=== PATIENT | female | born 1960 | race Caucasian/White ===

== ENCOUNTER 2017-10-26 15:12 | Outpatient (CLI) | payer OTHER ==
[2017-10-26 16:06] LABS: ALT (SGPT) 45 U/L (8-55); AST (SGOT) 69 U/L (5-34); Albumin 4.6 g/dL (3.5-5.0); Alkaline Phosphatase 135 U/L (40-150); Anion Gap 14 mmol/L (10-20); BUN (Urea Nitrogen) 13 mg/dL (9.8-20.1); Bilirubin, Total 0.4 mg/dL (0.2-1.2); Calc. Creatinine Clearance 0 mL/min (70-130); Calcium 10.6 mg/dL (7.8-10.44); Carbon Dioxide 28 mmol/L (22-29); Chloride 101 mmol/L (98-107); Estimated GFR-MDRD 63; Globulin 3.1 g/dL (2.4-3.5); Glucose 89 mg/dL (70-105); Potassium 4.4 mmol/L (3.5-5.1); Protein, Total 7.7 g/dL (6.0-8.3); Sodium 139 mmol/L (136-145); Uric Acid 1.2 mg/dL (2.6-6.0)
[2017-10-26 16:26] LABS: Band 1 % (5-11); Eosinophils 5 % (0-10); Hemoglobin 15.4 g/dL (12.0-16.0); Lymphocytes 41 % (21-51); MDiff Complete? YES; Mean Corpuscular Hemoglobin 32.5 pg (27.0-31.0); Mean Corpuscular Volume 95.5 fl (81.0-99.0); Mean Platelet Volume 8.5 fL (7.4-10.4); Monocytes 7 % (0-10); Neutrophil 45 % (42-75); PLT Morphology Comment Appears Adequate; Platelet Count 281 thou/uL (130-400); RBC Distribution Width 12.5 % (11.5-14.5); RBC Morphology Normal; Red Blood Cell (RBC) Count 4.76 mill/uL (4.20-5.40); White Blood Cell (WBC) Count 10.1 thou/uL (4.8-10.8)
--- NOTE | 2017-10-26 16:41 | RAD ---
LEFT HIP 2 VIEWS: Date: 10/26/17 HISTORY: Left hip pain x2 weeks. FINDINGS: There are arthritic changes of the hip without significant joint space narrowing, but some acetabular spur formation. No signs of fracture or other findings. IMPRESSION: Fairly minimal arthritic changes of the hip. POS: [facility]
[2017-10-26 16:45] LABS: Free T4 (Free Thyroxine) 1.33 ng/dL (0.70-1.48); Thyroid Stimulating Hormone 5.2155 uIU/mL (0.35-4.94)
== END 2017-10-26 15:13 | disposition home or self-care (01) ==
LOC: SCSRAD 15:12
PROVIDERS: ATTEND Family Medicine
DX: M16.12 Unilateral primary osteoarthritis, left hip (principal); I10 Essential (primary) hypertension
CPT/HCPCS: 36415; 80053; 84439; 84443; 84550; 85007; 85027

== ENCOUNTER 2017-11-20 08:54 | Outpatient (CLI) | payer OTHER ==
--- NOTE | 2017-11-20 12:13 | MRI ---
MRI LEFT HIP WITHOUT CONTRAST: INDICATIONS: Persistent left hip pain. COMPARISON: Left hip radiograph dated 10/26/2017. FINDINGS: There are changes of osteonecrosis involving the superior femoral head with reactive edema involving the femoral head and neck region. No definite subcortical collapse is demonstrated. There is mild o steoarthritic change of the left hip. No distinct fracture is noted. There is mild left joint effus ion present. There is mild tendinosis and fluid distention of the iliopsoas tendon sheath at the lesser trochanter . There is some mild tendinosis of the left gluteus minimus and medius tendons. There is a mild amount of osteonecrosis involving the right femoral head without evidence of subchond ral collapse. IMPRESSION: 1. Osteonecrosis of the left femoral head with reactive edema involving the left femoral head and ne ck region. There is a mild left joint effusion. No definite subchondral collapse is evident. 2. Mild left iliopsoas tenosynovitis. 3. Mild left gluteus minimus and medius tendinosis. 4. Mild osteonecrosis of the right femoral head without evidence of collapse. 5. Colonic diverticulosis. POS: [facility]
== END 2017-11-20 08:55 | disposition home or self-care (01) ==
LOC: SCSMRI 08:54
PROVIDERS: ATTEND Orthopaedic Surgery
DX: M25.552 Pain in left hip (principal); M25.452 Effusion, left hip; M67.854 Other specified disorders of tendon, left hip; M87.9 Osteonecrosis, unspecified; K57.30 Diverticulosis of large intestine without perforation or abscess without bleeding

== ENCOUNTER 2018-01-21 12:06 | Outpatient (CLI) | payer OTHER ==
[2018-01-21 13:54] LABS: Hemoglobin 13.6 g/dL (12.0-16.0); Mean Corpuscular HGB CONC 33.7 g/dL (32.0-36.0); Mean Corpuscular Hemoglobin 32.4 pg (27.0-31.0); Platelet Count 234 thou/uL (130-400); RBC Distribution Width 12.3 % (11.5-14.5); Red Blood Cell (RBC) Count 4.19 mill/uL (4.20-5.40); White Blood Cell (WBC) Count 10.8 thou/uL (4.8-10.8)
[2018-01-21 13:55] LABS: Bilirubin Negative (Negative); Blood, Urine Negative (Negative); Clarity CLOUDY (Clear); Glucose, Urine (Dipstick) Negative (Negative); Leukocyte Negative (Negative); Nitrite Negative (Negative); Protein, Urine (Dipstick) Negative (Neg-Trace); Specific Gravity, Urine 1.005 (1.002-1.036); Urobilinogen 0.2 mg/dL (0.2-1.0); pH, Urine 5.5 (5.0-9.0)
[2018-01-21 13:57] LABS: Bacteria/HPF Rare-Few HPF (None Seen); Hyaline Casts/LPF 0-3 HYALINE CAST LPF (0-3 Hyaline); Pathc Cast-AUWi Flag 0.29 (0-2.49); Squamous Epithelial 0-3 HPF (0-3); WBC/HPF 0-3 HPF (0-3)
[2018-01-21 13:58] LABS: Yeast-AUWi Flag 46.8 (0-25.0)
[2018-01-21 14:03] LABS: Prothrombin Time 13.3 SEC (12.0-14.7)
[2018-01-21 14:13] LABS: Anion Gap 13 mmol/L (10-20); BUN (Urea Nitrogen) 17 mg/dL (9.8-20.1); Calc. Creatinine Clearance 0 mL/min (70-130); Calcium 9.7 mg/dL (7.8-10.44); Carbon Dioxide 25 mmol/L (22-29); Chloride 102 mmol/L (98-107); Estimated GFR-MDRD 46; Glucose 114 mg/dL (70-105); Potassium 4.2 mmol/L (3.5-5.1); Sodium 136 mmol/L (136-145)
[2018-01-21 14:17] LABS: RBC/HPF None Seen HPF (0-3); Yeast-All Forms None Seen HPF (None Seen)
--- NOTE | 2018-01-21 17:16 | EKG ---
Test Reason : Blood Pressure : / mmHG Vent. Rate : 085 BPM Atrial Rate : 085 BPM P-R Int : 152 ms QRS Dur : 088 ms QT Int : 374 ms P-R-T Axes : 069 044 056 degrees QTc Int : 445 ms Normal sinus rhythm Cannot exclude Anteroseptal infarct , age undetermined Abnormal ECG Confirmed by BELINDA DAWKINS ([id number]) on 01/21/2018 5:15:33 PM Referred By: BRITNEY Confirmed By:BELINDA DAWKINS
== END 2018-01-21 12:07 | disposition home or self-care (01) ==
LOC: LABBT 12:06
PROVIDERS: ATTEND Orthopaedic Surgery
DX: Z01.818 Encounter for other preprocedural examination (principal); M87.052 Idiopathic aseptic necrosis of left femur
CPT/HCPCS: 80048; 81001; 85027; 85610; 86850; 86900; 86901; 87081; 93005; 93010

== ENCOUNTER 2018-01-21 14:00 | Inpatient (IN) | payer OTHER ==
[2018-01-21 12:22] VITALS: BMI 32.8
[2018-01-26] MEDS ORDERED: CEFAZOLIN/Water 2 GM/20 ML SYRINGE ONE (05:55)
[2018-01-26] MEDS ORDERED: Sodium Chloride 0.9% 100 ML ONE (05:55)
[2018-01-26] MEDS ORDERED: Vancomycin HCl 1.5 GM in Sodium Chloride 0.9% 250 ML 300 ML IVPB SCH ×2 (06:15→18:00)
[2018-01-26] MEDS ORDERED: Midazolam HCl 2 mg/2 ml Vial ONE (06:34)
[2018-01-26] MEDS ORDERED: Fentanyl 100 MCG/2 ML VIAL ONE ×2 (06:34→08:58)
[2018-01-26] MEDS ORDERED: Bupivacaine/Epinephrine 0.25% 30 ML VIAL ONE (06:55)
[2018-01-26] MEDS ORDERED: Bupivacaine HCl 0.5%/Epinephrine 1:200,000/PF 30 ml Vial ONE (06:55)
[2018-01-26] MEDS ORDERED: Lidocaine 1% w/Epinephrine 1:100K 30 ML VIAL ONE (06:58)
[2018-01-26] MEDS ORDERED: Ondansetron HCl/PF 4 MG/2 ML Vial IVP PRN ×3 (07:15→09:33)
[2018-01-26] MEDS ORDERED: Promethazine HCl 25 MG SUPP PR PRN (07:15)
[2018-01-26] MEDS ORDERED: fentaNYL Citrate/PF 1,250 MCG, Bupivacaine 25 ML in Sodium Chloride 0.9% 250 ML 200 ML EPIDURAL SCH (07:15)
[2018-01-26] MEDS ORDERED: Zolpidem Tartrate 5 MG TAB PO PRN ×2 (07:15→09:33)
[2018-01-26] MEDS ORDERED: traMADol HCl 50 MG TAB PO PRN ×3 (07:15→09:33)
[2018-01-26] MEDS ORDERED: HYDROcodone/Acetaminophen 5/325 mg Tablet PO PRN (07:15)
[2018-01-26] MEDS ORDERED: Naloxone HCl 0.4 mg/ml Vial IVP PRN (07:15)
[2018-01-26] MEDS ORDERED: Promethazine HCl 25 MG/ML VIAL IM PRN ×3 (07:15→09:33)
[2018-01-26] MEDS ORDERED: Bupivacaine 0.25% 10 ML VIAL EPIDURAL PRN (07:15)
[2018-01-26] MEDS ORDERED: diphenhydrAMINE 50 MG/ML VIAL IM PRN (07:15)
[2018-01-26] MEDS ORDERED: diphenhydrAMINE 50 MG/ML VIAL IVP PRN (07:15)
[2018-01-26] MEDS ORDERED: Naloxone HCl 0.4 mg/ml Vial IV PRN (07:15)
[2018-01-26] MEDS ORDERED: diphenhydrAMINE 25 MG CAP PO PRN ×2 (07:15→09:33)
[2018-01-26] MEDS ORDERED: Hydrocerin (Eucerin) Cream 120 gm Jar TOP PRN (07:15)
[2018-01-26] MEDS ORDERED: Promethazine HCl 25 MG/ML VIAL SLOW IVP PRN (08:55)
[2018-01-26] MEDS ORDERED: Acetaminophen 325 MG TAB PO PRN (09:33)
[2018-01-26] MEDS ORDERED: HYDROcodone/Acetaminophen 10/325 mg Tablet PO PRN ×2 (09:33)
[2018-01-26] MEDS ORDERED: Fentanyl 100 MCG/2 ML VIAL SLOW IVP PRN ×2 (09:33)
[2018-01-26] MEDS ORDERED: Aspirin 325 MG TAB PO SCH (09:33)
--- NOTE | 2018-01-26 09:46 | OP ---
DATE OF PROCEDURE: 01/26/2018 PREOPERATIVE DIAGNOSIS: Left hip avascular necrosis. POSTOPERATIVE DIAGNOSIS: Left hip avascular necrosis. PROCEDURE PERFORMED: Left total hip arthroplasty. STAFF: Estuardo Burgos M.D. SALES CONSULTANT RESIDENTIAL MANAGER: Oleg Reis PA-C. ANESTHESIA: Burrough. The patient received a general with epidural. ESTIMATED BLOOD LOSS: 200 mL. TOURNIQUET TIME: None. IMPLANTS: A [place]set Accolade TMXZ size 4.5,a Tritanium hemispherical cluster shell 54 mm, Trident 10 degree poly insert 36 mm, and a Biolox delta ceramic head 36 -5. ANTIBIOTICS: Vancomycin 1.5 grams, Ancef 2 grams, TXA 1 gram. COMPLICATIONS: None. HISTORY OF PRESENT ILLNESS: Ms. Rossi is a 57-year-old female presenting with greater than 3 months of left hip pain described as 10. The patient has history of alcoholism. I discussed with the patient preoperatively the risks and benefits of possible core decompression, possible grafting. I discussed with her that definitive care would be a total hip arthroplasty. The patient desired a total hip arthroplasty. She understood the risks and benefits of surgery including pain, scar, bleeding, infection, damage to vital structures, decreased range of motion or strength, need for further surgeries, failure of procedure, loss of life or limb. The patient understood these risks and benefits. The patient understands that she has increased risk of developing tremors given her history of alcohol use. She understands risks and benefits of the surgery and elected to proceed. PROCEDURE IN DETAIL: Time out was performed designating the patient's left hip as the operative site based on site, consents, markings. The patient's left hip was prepped and draped in sterile fashion. She had been placed in lateral position with bony prominences well padded. We placed a lateral incision down through skin, came down to the IT band, split the IT band, took down the gluteus medius and minimus to expose the capsule, T'd and excised the capsule, dislocated the hip, cut the femoral neck, removed the femoral head. We then exposed the acetabulum, removed the labrum and soft tissues from the cuff, reamed sequentially up to a 53, placed a 54 mm cup which was firm and fixed. We then broached. After we placed our final cup and our 10 degree poly insert, had a good overall coverage firmly fixed. We then moved to the femur. We then used our cookie cutter, placed opening reamer and broached to a 4.5, trialed the 4.5, -5, I liked the overall alignment and length, picked our final implants this was a 4.5 with a -5 ceramic head, reduced, may be longer by a few millimeters, but overall I liked the alignment and length of the patient's legs. The patient reduced well, had a good subtotal shuck, overall had good rotation, did not dislocate. We then washed. Final implants, closed with #2 Vicryl in the gluteus medius gluteus minimus, we then closed the IT band with # 2 Vicryl, #2 Quill, 0 Quill, 2-0 Quill, and glue for the skin. The patient will be admitted to [place] for postop protocol. She will be weightbearing as tolerated. The patient was followed by Medicine for possible DTs. EZRA
[2018-01-26] MEDS: Multivitamin W/ Minerals 1 TAB PO SCH (10:57)
[2018-01-26] MEDS: Ferrous Gluconate 324 MG TAB PO SCH ×2 (10:57→19:49)
[2018-01-26] MEDS: Senokot S 8.6-50 MG TAB PO SCH ×2 (10:57→19:50)
[2018-01-26] MEDS: Sodium Chloride 0.9% 1,000 ML IV SCH ×2 (11:06→17:16)
[2018-01-26] MEDS ORDERED: hydrALAZINE 20 MG/ML VIAL SLOW IVP PRN (12:45)
[2018-01-26] MEDS: Nicotine 21 MG PATCH TD SCH (13:12)
[2018-01-26] MEDS ORDERED: PROPOFOL 200 MG/20 ML VIAL ONE (13:26)
[2018-01-26] MEDS ORDERED: Lidocaine 1% PF 5 ML VIAL ONE (13:26)
[2018-01-26] MEDS ORDERED: PHENYLEPHRINE-NS 100 MCG/ML 10 ML SYRINGE ONE (13:26)
[2018-01-26] MEDS ORDERED: ePHEDrine/0.9% NaCl/PF SYRINGE 50 mg/10 ml ONE (13:26)
[2018-01-26] MEDS ORDERED: Ondansetron HCl/PF 4 MG/2 ML Vial ONE (13:26)
[2018-01-26] MEDS: hydrOXYzine Pamoate 25 mg Capsule PO SCH ×2 (14:47→21:49)
[2018-01-26] MEDS: CEFAZOLIN/Water 2 GM/20 ML SYRINGE SLOW IVP SCH ×2 (14:47→21:51)
--- NOTE | 2018-01-26 15:23 | RAD ---
TWO VIEWS LEFT HIP: Comparison: 10-26-17 FINDINGS: Two views of the left hip shows the patient to be status post left hip arthroplasty without perihardw are lucency or fracture. No degenerative change is seen in the right hip which is visualized on the l ower view of the pelvis. IMPRESSION: Status post left hip arthroplasty without evidence of acute osseous abnormality. POS: [facility]
[2018-01-26] MEDS: Ziprasidone 20 MG CAP PO SCH (17:15)
--- NOTE | 2018-01-26 17:58 | PDOC.PN ---
- Subjective Encounter Start Date: 01/26/18 Encounter Start Time: 15:00 Pt seen for management of medical comorbidities, including hypertension. Denies chest pain or shortness of breath. - Objective MAR Reviewed: Yes Vital Signs & Weight: Vital Signs (12 hours) Temp Pulse Pulse Resp BP BP Pulse Ox 01/26/18 17:10 85 94/57 L 01/26/18 15:50 97.2 F L 74 18 97/61 100 01/26/18 12:25 98.1 F 82 16 99/64 100 01/26/18 10:25 97.7 F 01/26/18 09:40 96.9 F L 72 20 105/67 100 Weight Weight 235 lb I&O: 01/25/18 01/26/18 01/27/18 06:59 06:59 06:59 Intake Total 837 Balance 837 Additional Labs: Labs reviewed by me Phys Exam - Physical Examination Obese HEENT: moist MMs Neck: supple Respiratory: clear to auscultation bilateral Cardiovascular: RRR Gastrointestinal: soft s/p L hip surgery Psychiatric: normal affect Dx/Plan (1) Hypertension Code(s): I10 - ESSENTIAL (PRIMARY) HYPERTENSION Status: Chronic Comment: Add PRN IV hydralazine for blood pressure spikes (2) Gout Code(s): M10.9 - GOUT, UNSPECIFIED Status: Chronic Comment: continue allopurinol (3) GERD (gastroesophageal reflux disease) Code(s): K21.9 - GASTRO-ESOPHAGEAL REFLUX DISEASE WITHOUT ESOPHAGITIS Status: Chronic Comment: continue PPI (4) Alcohol abuse, daily use Code(s): F10.10 - ALCOHOL ABUSE, UNCOMPLICATED Status: Chronic Comment: start ASE protocol (5) Tobacco abuse Code(s): Z72.0 - TOBACCO USE Status: Chronic Comment: start nicotine patch - Plan * . Review of Systems - Review of Systems Respiratory: negative: Cough, Shortness of Breath, SOB with Excertion, Pleuritic Pain, Wheezing Cardiovascular: negative: chest pain, palpitations, orthopnea, paroxysmal nocturnal dyspnea, edema, light headedness - Medications/Allergies Allergies/Adverse Reactions: Allergies Allergy/AdvReac Type Severity Reaction Status Date / Time No Known Allergies Allergy Verified 01/21/18 12:23 Medications: Current Medications Acetaminophen (Tylenol) 650 mg PO Q4H PRN PRN Reason: PHELPS/ T > 101F; Mild Pain (1-3) Hydrocodone Bitart/Acetaminophen ([place] 5/325) 1 tab PO Q4H PRN PRN Reason: Mild Pain 0-3 Hydrocodone Bitart/Acetaminophen ([place] 5/325) 2 tab PO Q4H PRN PRN Reason: For Moderate Pain 4-6 Allopurinol (Zyloprim) 300 mg PO DAILY [facility] Aspirin (Aspirin Chewable) 81 mg PO BID [facility] Cefazolin Sodium (Ancef) 2 gm SLOW IVP Q8HR [facility] Stop: 01/26/18 22:01 Last Admin: 01/26/18 14:47 Dose: 2 gm Citalopram Hydrobromide (Celexa) 40 mg PO DAILY [facility] Colestipol HCl (Colestid) 2 gm PO 1000 [facility] Diphenhydramine HCl (Benadryl) 25 mg PO Q3H PRN PRN Reason: Itching Diphenhydramine HCl (Benadryl) 25 mg IM Q3H PRN PRN Reason: Itching Diphenhydramine HCl (Benadryl) 25 mg IVP Q3H PRN PRN Reason: Itching Diphenhydramine HCl (Benadryl) 25 mg PO Q6H PRN PRN Reason: Itching Doxepin HCl (Sinequan) 75 mg PO HS [facility] Emollient Cream (Hydrocerin Cream) 0 gm TOP PRN PRN PRN Reason: Itching Ferrous Gluconate (Fergon) 324 mg PO BID [facility] Last Admin: 01/26/18 10:57 Dose: Not Given Hydralazine HCl (Apresoline) 10 mg SLOW IVP Q6H PRN PRN Reason: SBP Greater Than 170 Hydroxyzine Pamoate (Vistaril) 25 mg PO TID [facility] Last Admin: 01/26/18 14:47 Dose: 25 mg Fentanyl Citrate 1,250 mcg/Bupivacaine HCl 25 ml/ Sodium Chloride 250 mls @ 0 mls/hr EPIDURAL INF [facility] Sodium Chloride (Normal Saline 0.9%) 1,000 mls @ 100 mls/hr IV .Q10H [facility] Last Admin: 01/26/18 17:16 Dose: 1,000 mls Vancomycin HCl 1.5 gm/ Sodium (Chloride) 300 mls @ 200 mls/hr IVPB 1800 [facility] Stop: 01/26/18 19:29 Iron/Minerals/Multivitamins (Theragran M) 1 tab PO DAILY [facility] Last Admin: 01/26/18 10:57 Dose: Not Given Lisinopril (Zestril) 20 mg PO BID [facility] Miscellaneous Information (Communication Order-Pharmacy) 1 each FS ASDIR [facility] Naloxone HCl (Narcan) 0.2 mg IV Q5MIN PRN PRN Reason: RR <=8 OR OBTUNDED/UNAROUSABLE Naloxone HCl (Narcan) 0.1 mg IVP Q15MIN PRN PRN Reason: URINARY RETENTION Nicotine (Nicoderm Patch) 21 mg TD Q24HR [facility] Last Admin: 01/26/18 13:12 Dose: 21 mg Ondansetron HCl (Zofran) 4 mg IVP Q6H PRN PRN Reason: Nausea/Vomiting Pantoprazole Sodium (Protonix) 40 mg PO DAILY [facility] Promethazine HCl (Phenergan) 12.5 mg IM Q4H PRN PRN Reason: Nausea Promethazine HCl (Phenergan Suppository) 25 mg AL Q4H PRN PRN Reason: Nausea/Vomiting Senna/Docusate Sodium (Senokot S) 2 tab PO BID [facility] Last Admin: 01/26/18 10:57 Dose: Not Given Sodium Chloride (Flush - Normal Saline) 10 ml IVF PRN PRN PRN Reason: Saline Flush Tramadol HCl (Ultram) 50 mg PO Q6H PRN PRN Reason: Mild Pain 1-3 Tramadol HCl (Ultram) 100 mg PO Q6H PRN PRN Reason: Moderate Pain 4-6 Ziprasidone (Geodon) 40 mg PO BID-[facility] Last Admin: 01/26/18 17:15 Dose: 40 mg Zolpidem Tartrate (Ambien) 5 mg PO HSPRN PRN PRN Reason: Insomnia
[2018-01-26] MEDS: Lisinopril 20 MG TAB PO SCH (21:50)
[2018-01-26] MEDS: Doxepin HCl 25 MG CAP PO SCH (21:51)
[2018-01-27 05:50] LABS: Hemoglobin 10.5 g/dL (12.0-16.0); Mean Corpuscular HGB CONC 33.7 g/dL (32.0-36.0); Mean Corpuscular Hemoglobin 33.5 pg (27.0-31.0); Mean Corpuscular Volume 99.4 fL (78.0-98.0); Mean Platelet Volume 8.2 fL (7.4-10.4); Platelet Count 185 thou/uL (130-400); RBC Distribution Width 12.1 % (11.5-14.5); Red Blood Cell (RBC) Count 3.13 mill/uL (4.20-5.40); White Blood Cell (WBC) Count 8.9 thou/uL (4.8-10.8)
[2018-01-27] MEDS: HYDROcodone/Acetaminophen 5/325 mg Tablet PO PRN ×3 (05:57→14:27)
[2018-01-27] MEDS: Sodium Chloride 0.9% 1,000 ML IV SCH ×2 (06:00→08:22)
[2018-01-27] MEDS: Ziprasidone 20 MG CAP PO SCH ×2 (08:19→16:31)
[2018-01-27] MEDS: Ferrous Gluconate 324 MG TAB PO SCH ×2 (08:19→20:30)
[2018-01-27] MEDS: Multivitamin W/ Minerals 1 TAB PO SCH (08:20)
[2018-01-27] MEDS: Senokot S 8.6-50 MG TAB PO SCH ×2 (08:20→20:29)
[2018-01-27] MEDS: Allopurinol 300 MG TAB PO SCH (08:21)
[2018-01-27] MEDS: hydrOXYzine Pamoate 25 mg Capsule PO SCH ×3 (08:21→20:30)
[2018-01-27] MEDS: Lisinopril 20 MG TAB PO SCH ×2 (08:21→20:37)
[2018-01-27] MEDS: Citalopram 20 MG TAB PO SCH (08:22)
[2018-01-27] MEDS: Nicotine 21 MG PATCH TD SCH (13:25)
--- NOTE | 2018-01-27 14:55 | PDOC.PN ---
- Subjective Encounter Start Date: 01/27/18 Encounter Start Time: 14:50 Subjective: f/u for L TKA due to avascular necrosis POD #1. Some pain with movement. - Objective MAR Reviewed: Yes Vital Signs & Weight: Vital Signs (12 hours) Temp Pulse Resp BP BP BP Pulse Ox 01/27/18 11:47 98.3 F 83 16 96/64 96 01/27/18 08:45 103/69 01/27/18 08:21 95/63 01/27/18 08:18 98.6 F 85 14 95 01/27/18 07:47 98.6 F 85 14 95/63 95 01/27/18 04:00 99.5 F 90 16 93/60 93 L Weight Admit Weight 235 lb Weight 235 lb I&O: 01/26/18 01/27/18 01/28/18 06:59 06:59 06:59 Intake Total 3574 1224 Output Total 3425 Balance 149 1224 Result Diagrams: 01/27/18 05:21 Additional Labs: Laboratory Tests 02/05/16 01/21/18 17:45 13:10 Creatinine 1.21 H Estimated GFR (MDRD) 46 Hemoglobin A1c 5.6 Radiology Reviewed by me: Yes (L hip X-ray - post-op changes, no acute process) Phys Exam - Physical Examination Constitutional: NAD HEENT: PERRLA, sclera anicteric, oral pharynx no lesions Neck: no nodes, no JVD, supple, full ROM Respiratory: no wheezing, no rales, no rhonchi, clear to auscultation bilateral S1, S2 Cardiovascular: RRR, no significant murmur, no rub, gallop Gastrointestinal: soft, non-tender, no distention, positive bowel sounds L hip edema with surgical dressing in place Musculoskeletal: pulses present Neurological: normal sensation, moves all 4 limbs Psychiatric: normal affect, A&O x 3 Skin: no rash, normal turgor, cap refill <2 seconds Dx/Plan (1) Alcohol abuse, daily use Code(s): F10.10 - ALCOHOL ABUSE, UNCOMPLICATED Status: Chronic Comment: start ASE protocol (2) GERD (gastroesophageal reflux disease) Code(s): K21.9 - GASTRO-ESOPHAGEAL REFLUX DISEASE WITHOUT ESOPHAGITIS Status: Chronic Comment: continue PPI (3) Gout Code(s): M10.9 - GOUT, UNSPECIFIED Status: Chronic Comment: continue allopurinol, no evidence of acute flare (4) Hypertension Code(s): I10 - ESSENTIAL (PRIMARY) HYPERTENSION Status: Chronic Qualifiers: Hypertension type: essential hypertension Qualified Code(s): I10 - Essential (primary) hypertension Comment: Add PRN IV hydralazine for blood pressure spikes, serial monitoring on current BP regimen (5) Tobacco abuse Code(s): Z72.0 - TOBACCO USE Status: Chronic Comment: start nicotine patch 21mg TD daily (6) Status post total hip replacement, left Code(s): Z96.642 - PRESENCE OF LEFT ARTIFICIAL HIP JOINT Status: Acute Comment: POD #1, pain control, PT/OT for mobilization - Plan continue antibiotics, PT/OT, protective services social worker, incentive spirometry, out of bed/ ambulate, DVT proph w/SCDs Stable overall -: ASE protocol for withdrawal symptoms -: Pain control per protocol -: Continue ASA 81mg BID -: AM lab: CBC * .
[2018-01-27] MEDS: Doxepin HCl 25 MG CAP PO SCH (20:31)
[2018-01-28] MEDS: Sodium Chloride 0.9% 1,000 ML IV SCH ×2 (02:47→08:40)
[2018-01-28] MEDS: HYDROcodone/Acetaminophen 5/325 mg Tablet PO PRN (05:17)
[2018-01-28 05:27] LABS: Hemoglobin 10.5 g/dL (12.0-16.0); Mean Corpuscular HGB CONC 33.4 g/dL (32.0-36.0); Mean Corpuscular Hemoglobin 33.1 pg (27.0-31.0); Mean Corpuscular Volume 99.2 fL (78.0-98.0); Mean Platelet Volume 8.7 fL (7.4-10.4); Platelet Count 191 thou/uL (130-400); Red Blood Cell (RBC) Count 3.16 mill/uL (4.20-5.40); White Blood Cell (WBC) Count 10.6 thou/uL (4.8-10.8)
[2018-01-28] MEDS: Multivitamin W/ Minerals 1 TAB PO SCH (08:33)
[2018-01-28] MEDS: Ziprasidone 20 MG CAP PO SCH (08:33)
[2018-01-28] MEDS: Allopurinol 300 MG TAB PO SCH (08:34)
[2018-01-28] MEDS: Ferrous Gluconate 324 MG TAB PO SCH (08:34)
[2018-01-28] MEDS: Senokot S 8.6-50 MG TAB PO SCH (08:34)
[2018-01-28] MEDS: Citalopram 20 MG TAB PO SCH (08:34)
[2018-01-28] MEDS: hydrOXYzine Pamoate 25 mg Capsule PO SCH (08:35)
[2018-01-28] MEDS: Lisinopril 20 MG TAB PO SCH (08:36)
[2018-01-28] MEDS: Nicotine 21 MG PATCH TD SCH (12:04)
[2018-01-28 12:50] VITALS: BP 110/70; TEMP 97.8
== END 2018-01-28 12:52 | disposition home or self-care (01) | DRG 470 ==
LOC: SURG A 01-26 05:35 → SJJU 01-26 09:24
PROVIDERS: ADMIT Orthopaedic Surgery; ATTEND Orthopaedic Surgery
PROC: 0SRB04Z Replacement of Left Hip Joint with Ceramic on Polyethylene Synthetic Substitute, Open Approach (ICD-10-PCS; principal; 2018-01-26)
DX: M87.00 Idiopathic aseptic necrosis of unspecified bone (principal); M87.9 Osteonecrosis, unspecified
CPT/HCPCS: 36415; 85027; G8978-GP-CK; G8979-GP-CI; G8987-GO-CK; G8988-GO-CI; J0670; J2001; J2250; J2405; J2704; J3010; J3370; J3490; J7050; Q0177

== ENCOUNTER 2018-10-22 12:48 | Outpatient (CLI) | payer OTHER ==
--- NOTE | 2018-10-22 13:54 | MMO ---
Bilateral MAMMO Bilat Screen DDI. CLINICAL HISTORY: Patient is 58 years old and is seen for screening. The patient has no family history of breast cancer. The patient has no personal history of cancer. VIEWS: The views performed were: bilateral craniocaudal and bilateral mediolateral oblique. FILMS COMPARED: The present examination has been compared to a prior imaging study performed at [facility] on 02/14/2016. This study has been interpreted with the assistance of computer-aided detection. MAMMOGRAM FINDINGS: The breasts are heterogeneously dense, which could obscure a lesion on mammography. There is a stable mass seen in the upper-outer region of the right breast. There are no suspicious masses, suspicious calcifications, or new areas of architectural distortion. IMPRESSION: THERE IS NO MAMMOGRAPHIC EVIDENCE OF MALIGNANCY. A ROUTINE FOLLOW-UP MAMMOGRAM IN 1 YEAR IS RECOMMENDED. ACR BI-RADS Category 2 - Benign finding MAMMOGRAPHY NOTE: 1. A negative mammogram report should not delay a biopsy if a dominant of clinically suspicious mass is present. 2. Approximately 10% to 15% of breast cancers are not detected by mammography. 3. Adenosis and dense breasts may obscure an underlying neoplasm.
== END 2018-10-22 12:49 | disposition home or self-care (01) ==
LOC: SCSMAMMO 12:48
PROVIDERS: ATTEND Family Medicine
DX: Z12.31 Encounter for screening mammogram for malignant neoplasm of breast (principal)
CPT/HCPCS: 77067

== ENCOUNTER 2019-06-17 16:20 | Outpatient (CLI) | payer OTHER ==
--- NOTE | 2019-06-17 17:40 | RAD ---
LEFT HIP TWO VIEW: 06/17/19 HISTORY: Pain. COMPARISON: Radiograph 01/26/18. FINDINGS: There is satisfactory appearance of the left hip arthroplasty. Some low grade heterotopic ossificatio n laterally. No acute fracture or malalignment. No evidence for loosening. Left obturator ring is intact. IMPRESSION: No acute abnormality. POS: [facility]
--- NOTE | 2019-06-17 17:42 | RAD ---
RIGHT HIP TWO VIEW 06/17/19 HISTORY: Pain. COMPARISON: None. FINDINGS: There is a very subtle linear area of sclerosis of the right femoral head. Right obturator ring is in tact. IMPRESSION: Very subtle area of sclerosis of the right femoral head which could be artifactual versus avascular n ecrosis. MRI of the right hip may be beneficial if patient has risk factors for avascular necrosis. POS: [facility]
== END 2019-06-17 16:21 | disposition home or self-care (01) ==
LOC: SCSRAD 16:20
PROVIDERS: ATTEND Family Medicine
DX: M79.18 Myalgia, other site (principal); M25.552 Pain in left hip; M89.8X8 Other specified disorders of bone, other site

== ENCOUNTER 2020-02-24 09:10 | Outpatient (CLI) | payer OTHER ==
--- NOTE | 2020-02-24 09:40 | RAD ---
XR Hip Lt 2-3 View HISTORY: Injury, left hip pain Comparison 06/17/2019 FINDINGS: Postop changes of left hip arthroplasty are again seen in good position and alignment. Low-grade hete rotopic ossification is again seen laterally. There is no evidence of loosening. No fracture or dislocation is identified.
== END 2020-02-24 09:11 | disposition home or self-care (01) ==
LOC: SCSRAD 09:10
PROVIDERS: ATTEND Family Medicine
DX: M79.605 Pain in left leg (principal)

== ENCOUNTER 2020-08-09 15:45 | Inpatient (IN) | payer OTHER ==
[2020-08-13 11:34] VITALS: BMI 31.6
[2020-08-14] MEDS ORDERED: Tranexamic Acid 1,000 MG/10 ML VIAL ONE (06:07)
[2020-08-14] MEDS ORDERED: Vancomycin 1.5 GRAM/300 ML BAG ONE (06:07)
[2020-08-14] MEDS ORDERED: Sodium Chloride 0.9% 0 ML ONE (06:07)
[2020-08-14] MEDS ORDERED: Sodium Chloride 0.9% 100 ML ONE (06:07)
[2020-08-14] MEDS ORDERED: Fentanyl 250 MCG/5 ML VIAL ONE (06:17)
[2020-08-14] MEDS ORDERED: Midazolam HCl 2 mg/2 ml Vial ONE (06:29)
[2020-08-14] MEDS ORDERED: Fentanyl 100 MCG/2 ML VIAL ONE ×2 (06:29→09:52)
[2020-08-14] MEDS ORDERED: ePHEDrine 50 MG/ML VIAL ONE (07:19)
[2020-08-14] MEDS ORDERED: Dexamethasone 20 MG/5 ML VIAL ONE (07:19)
[2020-08-14] MEDS ORDERED: Glycopyrrolate 0.2 MG/ML 5 ML SYRINGE ONE (07:19)
[2020-08-14] MEDS ORDERED: PROPOFOL 200 MG/20 ML VIAL ONE (07:19)
[2020-08-14] MEDS ORDERED: Ondansetron PF 4 MG/2 ML Vial ONE (07:19)
[2020-08-14] MEDS ORDERED: Lidocaine 1.5% w/Epi 1:200K 30 ML VIAL (Epid Use) ONE (07:19)
[2020-08-14] MEDS ORDERED: Lidocaine 1% PF 5 ML VIAL ONE (07:19)
[2020-08-14] MEDS ORDERED: PHENYLEPHRINE-NS 100 MCG/ML 10 ML SYRINGE ONE (07:19)
[2020-08-14] MEDS ORDERED: Acetaminophen 500 MG TAB PO PRN (07:20)
[2020-08-14] MEDS ORDERED: Bupivacaine 0.25% 10 ML VIAL EPIDURAL PRN (07:30)
[2020-08-14] MEDS ORDERED: Naloxone HCl 0.4 mg/ml Vial IV PRN (07:30)
[2020-08-14] MEDS ORDERED: traMADol HCl 50 MG TAB PO PRN ×2 (07:30)
[2020-08-14] MEDS ORDERED: Naloxone HCl 0.4 mg/ml Vial IVP PRN (07:30)
[2020-08-14] MEDS ORDERED: diphenhydrAMINE 50 MG/ML VIAL IVP PRN (07:30)
[2020-08-14] MEDS ORDERED: diphenhydrAMINE 50 MG/ML VIAL IM PRN (07:30)
[2020-08-14] MEDS ORDERED: Zolpidem Tartrate 5 MG TAB PO PRN ×2 (07:30→09:50)
[2020-08-14] MEDS ORDERED: Promethazine HCl 25 MG SUPP PR PRN (07:30)
[2020-08-14] MEDS ORDERED: Hydrocerin (Eucerin) Cream 120 gm Jar TOP PRN (07:30)
[2020-08-14] MEDS ORDERED: HYDROcodone/Acetaminophen 5/325 mg Tablet PO PRN (07:30)
[2020-08-14] MEDS ORDERED: diphenhydrAMINE 25 MG CAP PO PRN ×2 (07:30→09:50)
[2020-08-14] MEDS ORDERED: Promethazine HCl 25 MG/ML VIAL IM PRN ×3 (07:30→09:50)
[2020-08-14] MEDS ORDERED: Ondansetron PF 4 MG/2 ML Vial IVP PRN ×2 (07:30→09:50)
[2020-08-14] MEDS ORDERED: Ropivacaine 0.2% HCl/PF 20 ML ONE (08:04)
[2020-08-14] MEDS ORDERED: Promethazine HCl 25 MG/ML VIAL SLOW IVP PRN (09:44)
[2020-08-14] MEDS ORDERED: Ondansetron HCl/PF 4 MG/2 ML Vial IVP PRN (09:44)
[2020-08-14] MEDS ORDERED: Acetaminophen 325 MG TAB PO PRN (09:50)
[2020-08-14] MEDS ORDERED: Ketorolac Tromethamine 30 MG/ML VIAL IVP PRN (09:50)
[2020-08-14] MEDS ORDERED: Fentanyl 100 MCG/2 ML VIAL SLOW IVP PRN ×2 (09:50)
[2020-08-14] MEDS ORDERED: HYDROcodone/Acetaminophen 10/325 mg Tablet PO PRN ×2 (09:50)
[2020-08-14] MEDS ORDERED: Ketorolac Tromethamine 30 MG/ML VIAL ONE (10:29)
[2020-08-14 11:06] LABS: HIV (1/2) Antibody/Antigen Non-Reactive (NonReactive); HIV 1/2 INDEX 0.16 S/CO (<1.00); Hep C IgG Ab Non-Reactive (NonReactive); Hep C Index 0.04 S/CO (0-0.79)
[2020-08-14 11:58] LABS: HBSAB Concentration 348.56 mIU/mL; Hep B Surf AB Reactive (NonReactive)
[2020-08-14] MEDS: Ketorolac Tromethamine 30 MG/ML VIAL IVP SCH ×2 (12:42→17:44)
[2020-08-14] MEDS: Senokot S 8.6-50 MG TAB PO SCH ×2 (12:42→21:30)
[2020-08-14] MEDS: Multivitamin W/ Minerals 1 TAB PO SCH (12:42)
[2020-08-14] MEDS: Dextrose 5 %-0.45 % NaCl 1,000 ML IV SCH (12:42)
[2020-08-14] MEDS: hydrOXYzine Pamoate 25 mg Capsule PO SCH ×2 (14:49→21:30)
[2020-08-14] MEDS: CEFAZOLIN 2 GM in Premix Bag 1 BAG IVPB SCH ×2 (14:49→21:41)
[2020-08-14] MEDS ORDERED: VANCOMYCIN 2 GRAM/400 ML BAG 2 GM in Premix Bag 1 BAG IVPB SCH (18:00)
[2020-08-14] MEDS: Ferrous Gluconate 324 MG TAB PO SCH (21:30)
[2020-08-14] MEDS: Citalopram 20 MG TAB PO SCH (21:30)
[2020-08-14] MEDS: Aspirin 81 mg Enteric Coated Tablet PO SCH (21:30)
[2020-08-14] MEDS: Ziprasidone 60 MG CAP PO SCH (21:31)
[2020-08-14] MEDS: Doxepin HCl 25 MG CAP PO SCH (21:31)
[2020-08-14] MEDS: Lisinopril 20 MG TAB PO SCH (21:39)
[2020-08-15] MEDS: Dextrose 5 %-0.45 % NaCl 1,000 ML IV SCH ×3 (01:05→15:43)
[2020-08-15] MEDS: Ketorolac Tromethamine 30 MG/ML VIAL IVP SCH ×4 (01:07→17:44)
[2020-08-15] MEDS: fentaNYL Citrate/PF 500 MCG, Bupivacaine 10 ML in Sodium Chloride 0.9% 80 ML EPIDURAL SCH ×2 (01:45→19:51)
[2020-08-15 05:07] LABS: #Lymphocytes 0.9 thou/uL (1.20-3.40); #Monocytes 0.7 thou/uL (0.11-0.59); #Neutrophils 9.6 thou/uL (1.40-6.50); %Basophils 0.1 % (0.0-1.0); %Eosinophils 0.1 % (0.0-10.0); %Lymphocytes 8.3 % (21.0-51.0); %Monocytes 6.3 % (0.0-10.0); %Neutrophils 85.2 % (42.0-75.0); Hemoglobin 10.5 g/dL (12.0-16.0); Mean Corpuscular HGB CONC 33.4 g/dL (32.0-36.0); Mean Corpuscular Hemoglobin 31.6 pg (27.0-31.0); Mean Corpuscular Volume 94.7 fL (78.0-98.0); Mean Platelet Volume 7.8 fL (7.4-10.4); Platelet Count 206 thou/uL (130-400); RBC Distribution Width 12.6 % (11.5-14.5); Red Blood Cell (RBC) Count 3.34 mill/uL (4.20-5.40); White Blood Cell (WBC) Count 11.2 thou/uL (4.8-10.8)
[2020-08-15 05:30] LABS: Anion Gap 12 mmol/L (10-20); BUN (Urea Nitrogen) 16 mg/dL (9.8-20.1); Calc. Creatinine Clearance 94 mL/min (70-130); Calcium 7.8 mg/dL (7.8-10.44); Carbon Dioxide 25 mmol/L (22-29); Chloride 104 mmol/L (98-107); Glucose 167 mg/dL (70-105); Potassium 4.6 mmol/L (3.5-5.1); Sodium 136 mmol/L (136-145)
[2020-08-15] MEDS: Amlodipine 5 MG TAB PO SCH (08:31)
[2020-08-15] MEDS: Lisinopril 20 MG TAB PO SCH ×2 (08:32→21:08)
[2020-08-15] MEDS: hydrOXYzine Pamoate 25 mg Capsule PO SCH ×3 (08:41→21:06)
[2020-08-15] MEDS: Multivitamin W/ Minerals 1 TAB PO SCH (08:41)
[2020-08-15] MEDS: Senokot S 8.6-50 MG TAB PO SCH ×2 (08:41→21:06)
[2020-08-15] MEDS: Ferrous Gluconate 324 MG TAB PO SCH ×2 (08:41→21:06)
[2020-08-15] MEDS: Ziprasidone 60 MG CAP PO SCH ×2 (08:41→21:07)
[2020-08-15] MEDS: Aspirin 81 mg Enteric Coated Tablet PO SCH ×2 (08:41→21:06)
[2020-08-15] MEDS: HYDROcodone/Acetaminophen 5/325 mg Tablet PO PRN (09:43)
[2020-08-15] MEDS: Citalopram 20 MG TAB PO SCH (21:06)
[2020-08-15] MEDS: Doxepin HCl 25 MG CAP PO SCH (21:07)
[2020-08-16] MEDS: Ketorolac Tromethamine 30 MG/ML VIAL IVP SCH ×2 (01:42→05:24)
[2020-08-16] MEDS: Dextrose 5 %-0.45 % NaCl 1,000 ML IV SCH ×2 (03:29→11:37)
[2020-08-16 05:34] LABS: #Eosinphils 0.2 thou/uL (0.0-0.7); #Lymphocytes 1.5 thou/uL (1.20-3.40); #Monocytes 0.9 thou/uL (0.11-0.59); #Neutrophils 8.2 thou/uL (1.40-6.50); %Basophils 0.2 % (0.0-1.0); %Eosinophils 2.1 % (0.0-10.0); %Lymphocytes 13.8 % (21.0-51.0); %Monocytes 8.3 % (0.0-10.0); %Neutrophils 75.6 % (42.0-75.0); Hemoglobin 10.2 g/dL (12.0-16.0); Mean Corpuscular HGB CONC 32.9 g/dL (32.0-36.0); Mean Corpuscular Hemoglobin 31.4 pg (27.0-31.0); Mean Corpuscular Volume 95.5 fL (78.0-98.0); Mean Platelet Volume 7.8 fL (7.4-10.4); Platelet Count 186 thou/uL (130-400); RBC Distribution Width 12.9 % (11.5-14.5); Red Blood Cell (RBC) Count 3.23 mill/uL (4.20-5.40); White Blood Cell (WBC) Count 10.8 thou/uL (4.8-10.8)
[2020-08-16 05:58] LABS: Anion Gap 11 mmol/L (10-20); BUN (Urea Nitrogen) 17 mg/dL (9.8-20.1); Calc. Creatinine Clearance 113 mL/min (70-130); Calcium 8.2 mg/dL (7.8-10.44); Carbon Dioxide 26 mmol/L (22-29); Chloride 104 mmol/L (98-107); Glucose 111 mg/dL (70-105); Potassium 4.5 mmol/L (3.5-5.1); Sodium 136 mmol/L (136-145)
[2020-08-16] MEDS: Lisinopril 20 MG TAB PO SCH (09:00)
[2020-08-16] MEDS: Amlodipine 5 MG TAB PO SCH (09:00)
[2020-08-16] MEDS: Ziprasidone 60 MG CAP PO SCH (09:00)
[2020-08-16] MEDS: Ferrous Gluconate 324 MG TAB PO SCH (09:00)
[2020-08-16] MEDS: hydrOXYzine Pamoate 25 mg Capsule PO SCH ×2 (09:01→14:36)
[2020-08-16] MEDS: Multivitamin W/ Minerals 1 TAB PO SCH (09:01)
[2020-08-16] MEDS: Senokot S 8.6-50 MG TAB PO SCH (09:01)
[2020-08-16] MEDS: Aspirin 81 mg Enteric Coated Tablet PO SCH (09:01)
[2020-08-16] MEDS: HYDROcodone/Acetaminophen 5/325 mg Tablet PO PRN ×3 (09:05→18:10)
[2020-08-16] MEDS ORDERED: Loperamide HCl 2 MG CAP PO SCH (14:30)
[2020-08-16 15:42] VITALS: BP 107/70; TEMP 99
== END 2020-08-16 18:20 | disposition home or self-care (01) | DRG 470 ==
LOC: SURG A 08-14 05:28 → SJJU 08-14 12:33 → EDSTATUS 08-14 15:45
PROVIDERS: ADMIT Orthopaedic Surgery; ATTEND Orthopaedic Surgery
PROC: 0SR904Z Replacement of Right Hip Joint with Ceramic on Polyethylene Synthetic Substitute, Open Approach (ICD-10-PCS; principal; 2020-08-14)
DX: M87.051 Idiopathic aseptic necrosis of right femur (principal); M84.48XA Pathological fracture, other site, initial encounter for fracture; M51.36 Other intervertebral disc degeneration, lumbar region; Z96.642 Presence of left artificial hip joint; F31.9 Bipolar disorder, unspecified; M10.9 Gout, unspecified; F10.10 Alcohol abuse, uncomplicated; K21.9 Gastro-esophageal reflux disease without esophagitis; I10 Essential (primary) hypertension; Z90.49 Acquired absence of other specified parts of digestive tract; Z90.710 Acquired absence of both cervix and uterus; Z87.891 Personal history of nicotine dependence; Z79.82 Long term (current) use of aspirin
CPT/HCPCS: 72170; 80048; 86706; 86803; 87389; J0690; J1100; J1885; J2001; J2250; J2405; J2704; J2795; J3010; J3370; J3490; Q0177

== ENCOUNTER 2020-08-26 15:10 | Inpatient (IN) | payer OTHER ==
[2020-08-26] MEDS ORDERED: Ondansetron PF 4 MG/2 ML Vial ONE (15:26)
[2020-08-26] MEDS ORDERED: Morphine 4 MG/ML VIAL ONE ×2 (15:26→16:41)
[2020-08-26] MEDS ORDERED: Morphine 2 MG/ML VIAL SLOW IVP PRN (18:53)
[2020-08-26] MEDS ORDERED: Milk Of Magnesia 30 ML UDCUP PO PRN (19:14)
[2020-08-26] MEDS ORDERED: traMADol HCl 50 MG TAB PO PRN (19:14)
[2020-08-26] MEDS ORDERED: Ondansetron PF 4 MG/2 ML Vial SLOW IVP PRN (19:14)
[2020-08-26] MEDS ORDERED: Communication Order-Pharmacy FS PRN (19:15)
[2020-08-26] MEDS: Aspirin 81 mg Enteric Coated Tablet PO SCH (20:36)
[2020-08-26] MEDS: Doxepin HCl 25 MG CAP PO SCH (20:36)
[2020-08-26] MEDS: Ziprasidone 60 MG CAP PO SCH (20:37)
[2020-08-26] MEDS: hydrOXYzine Pamoate 25 mg Capsule PO SCH (20:37)
[2020-08-26] MEDS: HYDROcodone/Acetaminophen 5/325 mg Tablet PO PRN (20:37)
[2020-08-26] MEDS: Citalopram 20 MG TAB PO SCH (20:38)
[2020-08-26] MEDS: Lisinopril 20 MG TAB PO SCH (21:51)
[2020-08-27 04:59] LABS: #Eosinphils 0.5 thou/uL (0.0-0.7); #Lymphocytes 2.5 thou/uL (1.20-3.40); #Monocytes 0.5 thou/uL (0.11-0.59); #Neutrophils 5.6 thou/uL (1.40-6.50); %Basophils 0.3 % (0.0-1.0); %Eosinophils 5.2 % (0.0-10.0); %Lymphocytes 27.6 % (21.0-51.0); Hemoglobin 10.8 g/dL (12.0-16.0); Mean Corpuscular HGB CONC 33.6 g/dL (32.0-36.0); Mean Corpuscular Hemoglobin 31.7 pg (27.0-31.0); Mean Corpuscular Volume 94.2 fL (78.0-98.0); Mean Platelet Volume 7.6 fL (7.4-10.4); Platelet Count 377 thou/uL (130-400); RBC Distribution Width 12.9 % (11.5-14.5); White Blood Cell (WBC) Count 9.1 thou/uL (4.8-10.8)
[2020-08-27 05:20] LABS: ALT (SGPT) 80 U/L (8-55); AST (SGOT) 54 U/L (5-34); Albumin 3.5 g/dL (3.5-5.0); Alkaline Phosphatase 599 U/L (40-110); Anion Gap 11 mmol/L (10-20); BUN (Urea Nitrogen) 18 mg/dL (9.8-20.1); Bilirubin, Total 0.3 mg/dL (0.2-1.2); Calc. Creatinine Clearance 0 mL/min (70-130); Calcium 8.9 mg/dL (7.8-10.44); Carbon Dioxide 27 mmol/L (22-29); Chloride 103 mmol/L (98-107); Globulin 2.6 g/dL (2.4-3.5); Glucose 124 mg/dL (70-105); Potassium 4.4 mmol/L (3.5-5.1); Protein, Total 6.1 g/dL (6.0-8.3); Sodium 137 mmol/L (136-145)
[2020-08-27 05:23] LABS: SARS-CoV-2 PCR by NAA Not Detected (NotDetected)
[2020-08-27] MEDS: HYDROcodone/Acetaminophen 5/325 mg Tablet PO PRN ×2 (06:34→19:37)
[2020-08-27] MEDS: hydrOXYzine Pamoate 25 mg Capsule PO SCH ×3 (08:06→21:02)
[2020-08-27] MEDS: Aspirin 81 mg Enteric Coated Tablet PO SCH ×2 (08:06→21:09)
[2020-08-27] MEDS: Lisinopril 20 MG TAB PO SCH (08:09)
[2020-08-27] MEDS: Ziprasidone 60 MG CAP PO SCH ×2 (08:14→21:01)
[2020-08-27] MEDS: Morphine 4 MG/ML VIAL SLOW IVP PRN ×3 (13:31→21:14)
[2020-08-27] MEDS: Citalopram 20 MG TAB PO SCH (21:01)
[2020-08-27] MEDS: Doxepin HCl 25 MG CAP PO SCH (21:01)
[2020-08-28] MEDS: Morphine 4 MG/ML VIAL SLOW IVP PRN ×2 (03:44→18:28)
[2020-08-28 05:44] LABS: #Eosinphils 0.6 thou/uL (0.0-0.7); #Lymphocytes 2.6 thou/uL (1.20-3.40); #Monocytes 0.6 thou/uL (0.11-0.59); #Neutrophils 4.9 thou/uL (1.40-6.50); %Basophils 0.5 % (0.0-1.0); %Eosinophils 6.4 % (0.0-10.0); %Lymphocytes 30.1 % (21.0-51.0); %Monocytes 6.9 % (0.0-10.0); %Neutrophils 56.1 % (42.0-75.0); Mean Corpuscular HGB CONC 33.8 g/dL (32.0-36.0); Mean Corpuscular Volume 94.7 fL (78.0-98.0); Mean Platelet Volume 7.7 fL (7.4-10.4); Platelet Count 390 thou/uL (130-400); Red Blood Cell (RBC) Count 3.75 mill/uL (4.20-5.40); White Blood Cell (WBC) Count 8.6 thou/uL (4.8-10.8)
[2020-08-28 06:04] LABS: Anion Gap 17 mmol/L (10-20); BUN (Urea Nitrogen) 18 mg/dL (9.8-20.1); Calc. Creatinine Clearance 0 mL/min (70-130); Calcium 9.3 mg/dL (7.8-10.44); Carbon Dioxide 21 mmol/L (22-29); Chloride 101 mmol/L (98-107); Glucose 110 mg/dL (70-105); Magnesium 1.9 mg/dL (1.6-2.6); Potassium 4.7 mmol/L (3.5-5.1); Sodium 134 mmol/L (136-145)
[2020-08-28] MEDS: hydrOXYzine Pamoate 25 mg Capsule PO SCH ×3 (08:59→20:40)
[2020-08-28] MEDS: Ziprasidone 60 MG CAP PO SCH ×2 (08:59→20:39)
[2020-08-28] MEDS: Aspirin 81 mg Enteric Coated Tablet PO SCH ×2 (08:59→20:40)
[2020-08-28] MEDS: Lisinopril 20 MG TAB PO SCH (08:59)
[2020-08-28] MEDS ORDERED: Tranexamic Acid 1,000 MG in Sodium Chloride 0.9% 250 ML 250 ML IVPB SCH (09:30)
[2020-08-28] MEDS ORDERED: VANCOMYCIN 2 GRAM/400 ML BAG 2 GM in Premix Bag 1 BAG IVPB SCH (10:30)
[2020-08-28] MEDS ORDERED: Sodium Chloride 0.9% 100 ML ONE (10:35)
[2020-08-28] MEDS ORDERED: Tranexamic Acid 1,000 MG/10 ML VIAL ONE (10:35)
[2020-08-28] MEDS ORDERED: Vancomycin 1 GM/200 ML BAG ONE (10:56)
[2020-08-28] MEDS ORDERED: Vancomycin 1.5 GRAM/300 ML BAG ONE (11:01)
[2020-08-28] MEDS ORDERED: Rocuronium Bromide 10 MG/ML (10ML VIAL) ONE (11:04)
[2020-08-28] MEDS ORDERED: PROPOFOL 200 MG/20 ML VIAL ONE (11:04)
[2020-08-28] MEDS ORDERED: Dexamethasone 20 MG/5 ML VIAL ONE (11:04)
[2020-08-28] MEDS ORDERED: Fentanyl 100 MCG/2 ML VIAL ONE ×3 (11:08→13:49)
[2020-08-28] MEDS ORDERED: VANCOMYCIN 2 GRAM/400 ML BAG IVPB SCH (11:30)
[2020-08-28] MEDS ORDERED: CEFAZOLIN 2 GM in Premix Bag 1 BAG IVPB SCH ×2 (11:30→20:00)
[2020-08-28] MEDS ORDERED: Promethazine HCl 25 MG/ML VIAL ONE (13:57)
[2020-08-28] MEDS ORDERED: HYDROcodone/Acetaminophen 10/325 mg Tablet PO PRN (13:59)
[2020-08-28] MEDS ORDERED: HYDROcodone/Acetaminophen 5/325 mg Tablet PO PRN (13:59)
[2020-08-28] MEDS ORDERED: HYDROmorphone 0.5 MG/0.5 ML SYRINGE ONE ×3 (14:15→15:08)
[2020-08-28] MEDS: HYDROcodone/Acetaminophen 5/325 mg Tablet PO PRN (20:24)
[2020-08-28] MEDS: Doxepin HCl 25 MG CAP PO SCH (20:38)
[2020-08-28] MEDS: Citalopram 20 MG TAB PO SCH (20:38)
[2020-08-28] MEDS: Vancomycin 1 GM in Premix Bag 1 BAG IVPB SCH (22:53)
[2020-08-29] MEDS: HYDROcodone/Acetaminophen 5/325 mg Tablet PO PRN ×3 (03:26→15:28)
[2020-08-29] MEDS ORDERED: CEFAZOLIN 2 GM in Premix Bag 1 BAG IVPB SCH ×2 (04:00→10:15)
[2020-08-29 05:38] LABS: #Lymphocytes 1.6 thou/uL (1.20-3.40); #Monocytes 0.9 thou/uL (0.11-0.59); %Basophils 0.2 % (0.0-1.0); %Eosinophils 0.3 % (0.0-10.0); %Lymphocytes 12.8 % (21.0-51.0); %Neutrophils 79.8 % (42.0-75.0); Hemoglobin 10.4 g/dL (12.0-16.0); Mean Corpuscular HGB CONC 32.3 g/dL (32.0-36.0); Mean Corpuscular Hemoglobin 30.6 pg (27.0-31.0); Mean Corpuscular Volume 94.6 fL (78.0-98.0); Mean Platelet Volume 7.6 fL (7.4-10.4); Platelet Count 383 thou/uL (130-400); RBC Distribution Width 12.6 % (11.5-14.5); Red Blood Cell (RBC) Count 3.41 mill/uL (4.20-5.40); White Blood Cell (WBC) Count 12.6 thou/uL (4.8-10.8)
[2020-08-29 06:05] LABS: Anion Gap 14 mmol/L (10-20); BUN (Urea Nitrogen) 16 mg/dL (9.8-20.1); Calc. Creatinine Clearance 0 mL/min (70-130); Calcium 8.9 mg/dL (7.8-10.44); Carbon Dioxide 27 mmol/L (22-29); Chloride 100 mmol/L (98-107); Glucose 132 mg/dL (70-105); Potassium 4.7 mmol/L (3.5-5.1); Sodium 136 mmol/L (136-145)
[2020-08-29] MEDS: Morphine 4 MG/ML VIAL SLOW IVP PRN (07:22)
[2020-08-29] MEDS ORDERED: Aspirin 81 mg Enteric Coated Tablet PO SCH (09:00)
[2020-08-29] MEDS: Ziprasidone 60 MG CAP PO SCH ×2 (09:11→21:03)
[2020-08-29] MEDS: Lisinopril 20 MG TAB PO SCH (09:11)
[2020-08-29] MEDS: Aspirin 81 mg Enteric Coated Tablet PO SCH ×2 (09:11→22:59)
[2020-08-29] MEDS: Amlodipine 5 MG TAB PO SCH (09:12)
[2020-08-29] MEDS: hydrOXYzine Pamoate 25 mg Capsule PO SCH ×3 (09:12→21:03)
[2020-08-29] MEDS ORDERED: Ketorolac Tromethamine 30 MG/ML VIAL IVP PRN (10:26)
[2020-08-29] MEDS: Vancomycin 1 GM in Premix Bag 1 BAG IVPB SCH (10:42)
[2020-08-29] MEDS ORDERED: diphenhydrAMINE 50 MG/ML VIAL IM PRN (15:19)
[2020-08-29] MEDS ORDERED: Naloxone HCl 0.4 mg/ml Vial IV PRN (15:19)
[2020-08-29] MEDS ORDERED: Promethazine HCl 25 MG/ML VIAL IM PRN (15:19)
[2020-08-29] MEDS ORDERED: diphenhydrAMINE 50 MG/ML VIAL IVP PRN (15:19)
[2020-08-29] MEDS ORDERED: Zolpidem Tartrate 5 MG TAB PO PRN (15:19)
[2020-08-29] MEDS ORDERED: fentaNYL Citrate/PF 2,000 MCG in Sodium Chloride 0.9% 60 ML IV PRN (15:19)
[2020-08-29] MEDS ORDERED: Ondansetron PF 4 MG/2 ML Vial IVP PRN (15:19)
[2020-08-29] MEDS ORDERED: diphenhydrAMINE 25 MG CAP PO PRN (15:19)
[2020-08-29] MEDS ORDERED: Communication Order-Pharmacy FS SCH (15:30)
[2020-08-29] MEDS: Doxepin HCl 25 MG CAP PO SCH (21:03)
[2020-08-29] MEDS: Citalopram 20 MG TAB PO SCH (21:03)
[2020-08-30] MEDS ORDERED: Sodium Chloride 0.45% 250 ML IV SCH (04:15)
[2020-08-30 06:34] LABS: #Basophils 0.1 thou/uL (0.0-0.2); #Eosinphils 0.6 thou/uL (0.0-0.7); #Lymphocytes 1.5 thou/uL (1.20-3.40); #Monocytes 1.4 thou/uL (0.11-0.59); #Neutrophils 15.6 thou/uL (1.40-6.50); %Basophils 0.3 % (0.0-1.0); %Eosinophils 3.1 % (0.0-10.0); %Lymphocytes 7.9 % (21.0-51.0); %Monocytes 7.5 % (0.0-10.0); %Neutrophils 81.2 % (42.0-75.0); Hemoglobin 9.8 g/dL (12.0-16.0); Mean Corpuscular HGB CONC 33.6 g/dL (32.0-36.0); Mean Corpuscular Hemoglobin 31.6 pg (27.0-31.0); Mean Corpuscular Volume 93.9 fL (78.0-98.0); Mean Platelet Volume 7.8 fL (7.4-10.4); Platelet Count 341 thou/uL (130-400); RBC Distribution Width 12.8 % (11.5-14.5); Red Blood Cell (RBC) Count 3.11 mill/uL (4.20-5.40); White Blood Cell (WBC) Count 19.2 thou/uL (4.8-10.8)
[2020-08-30 06:53] LABS: Lactic Acid 1.7 mmol/L (0.5-2.2)
[2020-08-30 06:55] LABS: Anion Gap 11 mmol/L (10-20); BUN (Urea Nitrogen) 23 mg/dL (9.8-20.1); Calc. Creatinine Clearance 0 mL/min (70-130); Calcium 8.9 mg/dL (7.8-10.44); Carbon Dioxide 27 mmol/L (22-29); Chloride 101 mmol/L (98-107); Glucose 145 mg/dL (70-105); Potassium 4.2 mmol/L (3.5-5.1); Sodium 135 mmol/L (136-145)
[2020-08-30] MEDS: Aspirin 81 mg Enteric Coated Tablet PO SCH ×2 (07:19→20:43)
[2020-08-30] MEDS: Ziprasidone 60 MG CAP PO SCH ×2 (08:46→20:43)
[2020-08-30] MEDS: hydrOXYzine Pamoate 25 mg Capsule PO SCH ×3 (08:49→20:44)
[2020-08-30] MEDS: Amlodipine 5 MG TAB PO SCH (08:50)
[2020-08-30] MEDS: Sodium Chloride 0.45% 1,000 ML IV SCH (08:52)
[2020-08-30] MEDS: Lisinopril 20 MG TAB PO SCH (08:52)
[2020-08-30] MEDS ORDERED: Tranexamic Acid 1,000 MG in Sodium Chloride 0.9% 250 ML 250 ML IVPB SCH (10:00)
[2020-08-30] MEDS ORDERED: CEFAZOLIN 2 GM in Premix Bag 1 BAG IVPB SCH (10:00)
[2020-08-30] MEDS ORDERED: Fentanyl 100 MCG/2 ML VIAL ONE ×2 (10:42→12:24)
[2020-08-30] MEDS ORDERED: Tranexamic Acid 1,000 MG/10 ML VIAL ONE (10:42)
[2020-08-30] MEDS ORDERED: Midazolam HCl 2 mg/2 ml Vial ONE (10:42)
[2020-08-30] MEDS ORDERED: Sodium Chloride 0.9% 10 ML ONE (10:42)
[2020-08-30] MEDS ORDERED: Sodium Chloride 0.9% 0 ML ONE (10:44)
[2020-08-30] MEDS ORDERED: Sodium Chloride 0.9% 100 ML ONE (10:45)
[2020-08-30] MEDS ORDERED: traMADol HCl 50 MG TAB PO PRN ×2 (11:30)
[2020-08-30] MEDS ORDERED: Naloxone HCl 0.4 mg/ml Vial IVP PRN (11:30)
[2020-08-30] MEDS ORDERED: diphenhydrAMINE 50 MG/ML VIAL IM PRN (11:30)
[2020-08-30] MEDS ORDERED: Naloxone HCl 0.4 mg/ml Vial IV PRN (11:30)
[2020-08-30] MEDS ORDERED: Ondansetron PF 4 MG/2 ML Vial IVP PRN (11:30)
[2020-08-30] MEDS ORDERED: Hydrocerin (Eucerin) Cream 120 gm Jar TOP PRN (11:30)
[2020-08-30] MEDS ORDERED: Zolpidem Tartrate 5 MG TAB PO PRN (11:30)
[2020-08-30] MEDS ORDERED: diphenhydrAMINE 25 MG CAP PO PRN (11:30)
[2020-08-30] MEDS ORDERED: Promethazine HCl 25 MG/ML VIAL IM PRN ×2 (11:30→14:41)
[2020-08-30] MEDS ORDERED: Promethazine HCl 25 MG SUPP PR PRN (11:30)
[2020-08-30] MEDS ORDERED: Ketorolac Tromethamine 30 MG/ML VIAL IVP PRN (11:30)
[2020-08-30] MEDS ORDERED: diphenhydrAMINE 50 MG/ML VIAL IVP PRN (11:30)
[2020-08-30] MEDS ORDERED: Phenylephrine 10 MG/ML VIAL ONE (12:24)
[2020-08-30] MEDS ORDERED: Vancomycin 1.5 GRAM/300 ML BAG ONE (12:32)
[2020-08-30] MEDS ORDERED: Dexamethasone 20 MG/5 ML VIAL ONE (12:39)
[2020-08-30] MEDS ORDERED: Glycopyrrolate 0.2 MG/ML 5 ML SYRINGE ONE (12:39)
[2020-08-30] MEDS ORDERED: Lidocaine 1% PF 5 ML VIAL ONE (12:39)
[2020-08-30] MEDS ORDERED: Ondansetron PF 4 MG/2 ML Vial ONE (12:39)
[2020-08-30] MEDS ORDERED: Rocuronium Bromide 10 MG/ML (10ML VIAL) ONE (12:39)
[2020-08-30] MEDS ORDERED: Ketorolac Tromethamine 30 MG/ML VIAL ONE (12:39)
[2020-08-30] MEDS ORDERED: PROPOFOL 200 MG/20 ML VIAL ONE (12:39)
[2020-08-30] MEDS ORDERED: Bupivacaine 0.25% HCL 30 ML VIAL ONE (12:39)
[2020-08-30] MEDS ORDERED: Lidocaine 1.5% w/Epi 1:200K 30 ML VIAL (Epid Use) ONE (12:39)
[2020-08-30] MEDS ORDERED: Promethazine HCl 25 MG/ML VIAL SLOW IVP PRN (14:41)
[2020-08-30] MEDS ORDERED: Ondansetron HCl/PF 4 MG/2 ML Vial IVP PRN (14:41)
[2020-08-30] MEDS: Citalopram 20 MG TAB PO SCH (20:42)
[2020-08-30] MEDS: Doxepin HCl 25 MG CAP PO SCH (20:43)
[2020-08-30] MEDS: CEFAZOLIN 2 GM in Premix Bag 1 BAG IVPB SCH (20:43)
[2020-08-30] MEDS ORDERED: Vancomycin 1.5 GRAM/300 ML BAG 1.5 GM in Premix Bag 1 BAG IVPB ONE (21:00)
[2020-08-31] MEDS: Sodium Chloride 0.45% 1,000 ML IV SCH ×3 (00:54→17:42)
[2020-08-31] MEDS ORDERED: Vancomycin 1.5 GRAM/300 ML BAG 1.5 GM in Premix Bag 1 BAG IVPB SCH (01:00)
[2020-08-31] MEDS: CEFAZOLIN 2 GM in Premix Bag 1 BAG IVPB SCH (05:07)
[2020-08-31 08:06] LABS: Hemoglobin 8.6 g/dL (12.0-16.0); Mean Corpuscular HGB CONC 32.7 g/dL (32.0-36.0); Mean Corpuscular Volume 94.8 fL (78.0-98.0); Mean Platelet Volume 8.1 fL (7.4-10.4); Platelet Count 327 thou/uL (130-400); RBC Distribution Width 12.8 % (11.5-14.5); Red Blood Cell (RBC) Count 2.76 mill/uL (4.20-5.40); White Blood Cell (WBC) Count 11.6 thou/uL (4.8-10.8)
[2020-08-31] MEDS: Fentanyl 5 mcg/Bup 0.075% Cadd 100 ML EPIDURAL SCH (09:55)
[2020-08-31] MEDS: Amlodipine 5 MG TAB PO SCH (09:56)
[2020-08-31] MEDS: Lisinopril 20 MG TAB PO SCH (09:57)
[2020-08-31] MEDS: Aspirin 81 mg Enteric Coated Tablet PO SCH ×2 (09:59→20:25)
[2020-08-31] MEDS: hydrOXYzine Pamoate 25 mg Capsule PO SCH ×3 (10:00→20:25)
[2020-08-31] MEDS: Ziprasidone 60 MG CAP PO SCH ×2 (10:00→20:30)
[2020-08-31] MEDS: Citalopram 20 MG TAB PO SCH (20:25)
[2020-08-31] MEDS: Doxepin HCl 25 MG CAP PO SCH (20:25)
[2020-09-01] MEDS: Fentanyl 5 mcg/Bup 0.075% Cadd 100 ML EPIDURAL SCH ×2 (01:23→18:25)
[2020-09-01 05:12] LABS: #Basophils 0.1 thou/uL (0.0-0.2); #Eosinphils 0.5 thou/uL (0.0-0.7); #Lymphocytes 3.6 thou/uL (1.20-3.40); #Monocytes 0.7 thou/uL (0.11-0.59); %Basophils 0.6 % (0.0-1.0); %Lymphocytes 32.6 % (21.0-51.0); %Monocytes 6.8 % (0.0-10.0); %Neutrophils 55.1 % (42.0-75.0); Hemoglobin 8.1 g/dL (12.0-16.0); Mean Corpuscular HGB CONC 31.7 g/dL (32.0-36.0); Mean Corpuscular Hemoglobin 30.2 pg (27.0-31.0); Mean Corpuscular Volume 95.1 fL (78.0-98.0); Mean Platelet Volume 7.7 fL (7.4-10.4); Platelet Count 315 thou/uL (130-400); RBC Distribution Width 12.8 % (11.5-14.5); Red Blood Cell (RBC) Count 2.69 mill/uL (4.20-5.40)
[2020-09-01 05:33] LABS: ALT (SGPT) 29 U/L (8-55); AST (SGOT) 21 U/L (5-34); Alkaline Phosphatase 303 U/L (40-110); Anion Gap 13 mmol/L (10-20); BUN (Urea Nitrogen) 19 mg/dL (9.8-20.1); Bilirubin, Total 0.2 mg/dL (0.2-1.2); Calc. Creatinine Clearance 0 mL/min (70-130); Calcium 8.6 mg/dL (7.8-10.44); Carbon Dioxide 25 mmol/L (22-29); Chloride 106 mmol/L (98-107); Globulin 2.2 g/dL (2.4-3.5); Glucose 120 mg/dL (70-105); Potassium 4.1 mmol/L (3.5-5.1); Protein, Total 5.2 g/dL (6.0-8.3); Sodium 140 mmol/L (136-145)
[2020-09-01] MEDS: Sodium Chloride 0.45% 1,000 ML IV SCH ×2 (07:50→21:43)
[2020-09-01] MEDS: Aspirin 81 mg Enteric Coated Tablet PO SCH ×2 (09:42→21:05)
[2020-09-01] MEDS: Ziprasidone 60 MG CAP PO SCH ×2 (11:27→21:07)
[2020-09-01 13:30] LABS: Hemoglobin 8.6 g/dL (12.0-16.0)
[2020-09-01] MEDS: Sodium Chloride 0.9% 1,000 ML IV SCH ×3 (18:51→21:49)
[2020-09-01 19:50] LABS: Hemoglobin 8.9 g/dL (12.0-16.0)
[2020-09-01] MEDS ORDERED: hydrOXYzine 25 MG TAB PO SCH (20:15)
[2020-09-01] MEDS ORDERED: hydrOXYzine Pamoate 25 mg Capsule PO PRN (20:49)
[2020-09-01] MEDS: Citalopram 20 MG TAB PO SCH (21:05)
[2020-09-01] MEDS: Doxepin HCl 25 MG CAP PO SCH (21:06)
[2020-09-02 02:04] LABS: #Basophils 0.1 thou/uL (0.0-0.2); #Eosinphils 0.8 thou/uL (0.0-0.7); #Monocytes 0.7 thou/uL (0.11-0.59); #Neutrophils 5.4 thou/uL (1.40-6.50); %Basophils 0.9 % (0.0-1.0); %Eosinophils 7.2 % (0.0-10.0); %Lymphocytes 36.3 % (21.0-51.0); %Monocytes 6.1 % (0.0-10.0); %Neutrophils 49.5 % (42.0-75.0); Hemoglobin 8.5 g/dL (12.0-16.0); Mean Corpuscular HGB CONC 33.2 g/dL (32.0-36.0); Mean Corpuscular Hemoglobin 31.5 pg (27.0-31.0); Mean Corpuscular Volume 94.8 fL (78.0-98.0); Mean Platelet Volume 7.6 fL (7.4-10.4); Platelet Count 342 thou/uL (130-400); RBC Distribution Width 12.8 % (11.5-14.5); White Blood Cell (WBC) Count 10.9 thou/uL (4.8-10.8)
[2020-09-02 02:31] LABS: ALT (SGPT) 25 U/L (8-55); AST (SGOT) 21 U/L (5-34); Alkaline Phosphatase 279 U/L (40-110); Anion Gap 14 mmol/L (10-20); BUN (Urea Nitrogen) 15 mg/dL (9.8-20.1); Bilirubin, Total 0.2 mg/dL (0.2-1.2); Calc. Creatinine Clearance 0 mL/min (70-130); Calcium 8.4 mg/dL (7.8-10.44); Carbon Dioxide 24 mmol/L (22-29); Chloride 107 mmol/L (98-107); Globulin 2.1 g/dL (2.4-3.5); Glucose 105 mg/dL (70-105); Potassium 4.4 mmol/L (3.5-5.1); Protein, Total 5.1 g/dL (6.0-8.3); Sodium 141 mmol/L (136-145)
[2020-09-02] MEDS: Aspirin 81 mg Enteric Coated Tablet PO SCH ×2 (09:17→20:46)
[2020-09-02] MEDS: Ziprasidone 60 MG CAP PO SCH ×2 (09:17→20:47)
[2020-09-02] MEDS: Fentanyl 5 mcg/Bup 0.075% Cadd 100 ML EPIDURAL SCH (09:17)
[2020-09-02] MEDS ORDERED: hydrOXYzine 25 MG TAB PO PRN (10:24)
[2020-09-02] MEDS: HYDROcodone/Acetaminophen 5/325 mg Tablet PO PRN ×3 (12:53→20:47)
[2020-09-02] MEDS: Sodium Chloride 0.9% 1,000 ML IV SCH ×2 (18:03→18:04)
[2020-09-02] MEDS: Citalopram 20 MG TAB PO SCH (20:46)
[2020-09-02] MEDS: Doxepin HCl 25 MG CAP PO SCH (20:46)
[2020-09-03] MEDS: Sodium Chloride 0.9% 1,000 ML IV SCH (04:27)
[2020-09-03] MEDS: HYDROcodone/Acetaminophen 5/325 mg Tablet PO PRN ×4 (04:31→18:14)
[2020-09-03 06:18] LABS: #Basophils 0.1 thou/uL (0.0-0.2); #Lymphocytes 2.8 thou/uL (1.20-3.40); #Monocytes 0.7 thou/uL (0.11-0.59); #Neutrophils 4.5 thou/uL (1.40-6.50); %Basophils 0.8 % (0.0-1.0); %Eosinophils 10.6 % (0.0-10.0); %Lymphocytes 31.3 % (21.0-51.0); %Monocytes 8.2 % (0.0-10.0); %Neutrophils 49.2 % (42.0-75.0); Hemoglobin 8.5 g/dL (12.0-16.0); Mean Corpuscular HGB CONC 32.6 g/dL (32.0-36.0); Mean Corpuscular Hemoglobin 30.9 pg (27.0-31.0); Mean Corpuscular Volume 94.9 fL (78.0-98.0); Mean Platelet Volume 7.6 fL (7.4-10.4); Platelet Count 357 thou/uL (130-400); RBC Distribution Width 12.8 % (11.5-14.5); Red Blood Cell (RBC) Count 2.74 mill/uL (4.20-5.40); White Blood Cell (WBC) Count 9.1 thou/uL (4.8-10.8)
[2020-09-03] MEDS: Morphine 4 MG/ML VIAL SLOW IVP PRN ×2 (08:17→21:16)
[2020-09-03] MEDS: Ziprasidone 60 MG CAP PO SCH ×2 (08:30→21:12)
[2020-09-03] MEDS: Aspirin 81 mg Enteric Coated Tablet PO SCH ×2 (08:30→21:12)
[2020-09-03] MEDS: hydrOXYzine Pamoate 25 mg Capsule PO PRN ×2 (08:36→16:42)
[2020-09-03] MEDS: tiZANidine HCl 4 MG TAB PO PRN ×3 (10:43→21:12)
[2020-09-03] MEDS: Citalopram 20 MG TAB PO SCH (21:12)
[2020-09-03] MEDS: Doxepin HCl 25 MG CAP PO SCH (21:13)
[2020-09-04] MEDS: hydrOXYzine Pamoate 25 mg Capsule PO PRN (05:22)
[2020-09-04] MEDS: HYDROcodone/Acetaminophen 5/325 mg Tablet PO PRN ×4 (05:22→22:32)
[2020-09-04] MEDS: Aspirin 81 mg Enteric Coated Tablet PO SCH ×2 (08:03→19:55)
[2020-09-04] MEDS: Calcium Carbonate 600 MG + Vit D TAB PO SCH ×2 (08:03→18:00)
[2020-09-04] MEDS: Multivit, Therapeutic 1 TAB PO SCH (08:03)
[2020-09-04] MEDS: Ziprasidone 60 MG CAP PO SCH ×2 (08:03→19:55)
[2020-09-04] MEDS: tiZANidine HCl 4 MG TAB PO PRN (12:28)
[2020-09-04] MEDS: Citalopram 20 MG TAB PO SCH (19:55)
[2020-09-04] MEDS: Doxepin HCl 25 MG CAP PO SCH (19:55)
[2020-09-04] MEDS: Morphine 4 MG/ML VIAL SLOW IVP PRN (19:59)
[2020-09-05] MEDS: Aspirin 81 mg Enteric Coated Tablet PO SCH ×2 (08:51→20:40)
[2020-09-05] MEDS: Ziprasidone 60 MG CAP PO SCH ×2 (08:51→20:40)
[2020-09-05] MEDS: Calcium Carbonate 600 MG + Vit D TAB PO SCH ×2 (08:51→17:54)
[2020-09-05] MEDS: Multivit, Therapeutic 1 TAB PO SCH (08:51)
[2020-09-05] MEDS: tiZANidine HCl 4 MG TAB PO PRN ×2 (08:56→15:49)
[2020-09-05] MEDS: hydrOXYzine Pamoate 25 mg Capsule PO PRN (11:13)
[2020-09-05] MEDS: HYDROcodone/Acetaminophen 5/325 mg Tablet PO PRN ×3 (11:13→20:40)
[2020-09-05] MEDS: Citalopram 20 MG TAB PO SCH (20:40)
[2020-09-05] MEDS: Doxepin HCl 25 MG CAP PO SCH (20:40)
[2020-09-06] MEDS: Ziprasidone 60 MG CAP PO SCH ×2 (08:24→20:29)
[2020-09-06] MEDS: Calcium Carbonate 600 MG + Vit D TAB PO SCH ×2 (08:24→16:28)
[2020-09-06] MEDS: Multivit, Therapeutic 1 TAB PO SCH (08:24)
[2020-09-06] MEDS: Aspirin 81 mg Enteric Coated Tablet PO SCH ×2 (08:24→20:29)
[2020-09-06] MEDS: hydrOXYzine Pamoate 25 mg Capsule PO PRN (08:26)
[2020-09-06] MEDS: HYDROcodone/Acetaminophen 5/325 mg Tablet PO PRN ×3 (12:05→20:29)
[2020-09-06] MEDS: tiZANidine HCl 4 MG TAB PO PRN ×3 (12:06→20:29)
[2020-09-06 13:33] VITALS: BMI 31.6
[2020-09-06] MEDS: Citalopram 20 MG TAB PO SCH (20:28)
[2020-09-06] MEDS: Doxepin HCl 25 MG CAP PO SCH (20:29)
[2020-09-06] MEDS: Morphine 4 MG/ML VIAL SLOW IVP PRN (22:43)
[2020-09-07] MEDS: Calcium Carbonate 600 MG + Vit D TAB PO SCH ×2 (08:26→16:10)
[2020-09-07] MEDS: Aspirin 81 mg Enteric Coated Tablet PO SCH (08:26)
[2020-09-07] MEDS: Multivit, Therapeutic 1 TAB PO SCH (08:26)
[2020-09-07] MEDS: Ziprasidone 60 MG CAP PO SCH (08:26)
[2020-09-07] MEDS: tiZANidine HCl 4 MG TAB PO PRN ×3 (08:31→17:58)
[2020-09-07] MEDS: hydrOXYzine Pamoate 25 mg Capsule PO PRN ×2 (08:32→17:50)
[2020-09-07] MEDS: HYDROcodone/Acetaminophen 5/325 mg Tablet PO PRN ×2 (08:32→13:40)
[2020-09-07] MEDS: Morphine 4 MG/ML VIAL SLOW IVP PRN (17:47)
[2020-09-07 19:13] VITALS: BP 141/93; TEMP 97.4
== END 2020-09-07 19:13 | disposition home or self-care (01) | DRG 467 ==
LOC: ERS 15:10 → SURG B 16:29
PROVIDERS: ADMIT Orthopaedic Surgery; ATTEND Orthopaedic Surgery
PROC: 0SRA03Z Replacement of Right Hip Joint, Acetabular Surface with Ceramic Synthetic Substitute, Open Approach (ICD-10-PCS; principal; 2020-08-28)
PROC: 0SPA0JZ Removal of Synthetic Substitute from Right Hip Joint, Acetabular Surface, Open Approach (ICD-10-PCS; 2020-08-28)
PROC: 0SP909Z Removal of Liner from Right Hip Joint, Open Approach (ICD-10-PCS; 2020-08-30)
PROC: 0SUA09Z Supplement Right Hip Joint, Acetabular Surface with Liner, Open Approach (ICD-10-PCS; 2020-08-30)
DX: T84.030A Mechanical loosening of internal right hip prosthetic joint, initial encounter (principal); N17.9 Acute kidney failure, unspecified; E44.0 Moderate protein-calorie malnutrition; E87.1 Hypo-osmolality and hyponatremia; Y83.9 Surgical procedure, unspecified as the cause of abnormal reaction of the patient, or of later complication, without mention of misadventure at the time of the procedure; F31.9 Bipolar disorder, unspecified; I12.9 Hypertensive chronic kidney disease with stage 1 through stage 4 chronic kidney disease, or unspecified chronic kidney disease; M10.9 Gout, unspecified; F10.10 Alcohol abuse, uncomplicated; K21.9 Gastro-esophageal reflux disease without esophagitis; Z20.822 Contact with and (suspected) exposure to COVID-19; N18.2 Chronic kidney disease, stage 2 (mild); Z79.82 Long term (current) use of aspirin; Z90.710 Acquired absence of both cervix and uterus; Z90.49 Acquired absence of other specified parts of digestive tract; Z79.899 Other long term (current) drug therapy; Z87.891 Personal history of nicotine dependence; Z98.51 Tubal ligation status; Z68.31 Body mass index [BMI] 31.0-31.9, adult; T84.84XA Pain due to internal orthopedic prosthetic devices, implants and grafts, initial encounter
CPT/HCPCS: 36415; 72170; 80048; 80053; 83605; 83735; 85025; 85027; 86850; 86900; 86901; 87070; 87205; 87635; 93005; 93010; 96374; 96375; C1713; C1776; J0690; J1100; J1170; J1885; J2001; J2250; J2270; J2370; J2405; J2550; J2704; J3010; J3370; J3490; Q0163; Q0177; S0020; U0003; U0005

== ENCOUNTER 2021-02-21 10:56 | Inpatient (IN) | payer OTHER ==
[2021-02-21 16:27] VITALS: BMI 31.9
[2021-02-21] MEDS ORDERED: Ondansetron PF 4 MG/2 ML Vial IVP PRN (18:49)
[2021-02-21] MEDS: Acetaminophen 325 MG TAB PO PRN (20:54)
[2021-02-21] MEDS: Famotidine/PF 20 mg/2ml Vial SLOW IVP SCH (20:55)
[2021-02-21] MEDS ORDERED: Vancomycin 1 GM in Premix Bag 1 BAG IVPB SCH (21:00)
[2021-02-21] MEDS: Vancomycin HCl 1.5 GM in Sodium Chloride 0.9% 250 ML 300 ML IVPB SCH (21:09)
[2021-02-21] MEDS: Ziprasidone 60 MG CAP PO SCH (21:17)
[2021-02-21] MEDS: Doxepin HCl 25 MG CAP PO SCH (21:18)
[2021-02-21] MEDS ORDERED: hydrOXYzine Pamoate 25 mg Capsule PO PRN (21:40)
[2021-02-21] MEDS: Citalopram 20 MG TAB PO SCH (22:02)
[2021-02-22] MEDS ORDERED: Lorazepam 1 MG TAB PO PRN
[2021-02-22] MEDS: Ibuprofen 200 MG TAB PO PRN (03:27)
[2021-02-22] MEDS ORDERED: Electrolyte Replacement Protocol 1 EACH FS PRN (05:15)
[2021-02-22] MEDS ORDERED: Ondansetron ODT 4 MG TAB PO PRN (05:15)
[2021-02-22] MEDS: Lorazepam 1 MG TAB PO SCH ×5 (05:39→23:59)
[2021-02-22] MEDS: Thiamine HCl 200 MG/2 ML VIAL SLOW IVP SCH (05:47)
[2021-02-22] MEDS ORDERED: Lorazepam 2 MG/ML VIAL IM PRN (06:00)
[2021-02-22] MEDS ORDERED: Piperacillin/Tazobactam 3.375 GM in Sodium Chloride 0.9% 100 ML IVPB SCH (07:15)
[2021-02-22] MEDS: Famotidine/PF 20 mg/2ml Vial SLOW IVP SCH ×2 (08:30→20:31)
[2021-02-22] MEDS: Ziprasidone 60 MG CAP PO SCH ×2 (08:30→20:32)
[2021-02-22] MEDS: Folic Acid 1 MG TAB PO SCH (08:30)
[2021-02-22] MEDS: Multivit, Therapeutic 1 TAB PO SCH (08:30)
[2021-02-22] MEDS: Vancomycin HCl 1.5 GM in Sodium Chloride 0.9% 250 ML 300 ML IVPB SCH ×2 (09:14→20:32)
[2021-02-22] MEDS ORDERED: Iopamidol-370 76% 500 ML 1 ML ONE (10:17)
[2021-02-22] MEDS: HYDROcodone/Acetaminophen 5/325 mg Tablet PO PRN (14:31)
[2021-02-22 16:09] LABS: ALT (SGPT) 73 U/L (8-55); AST (SGOT) 41 U/L (5-34); Albumin 4.1 g/dL (3.5-5.0); Alkaline Phosphatase 224 U/L (40-110); Anion Gap 13 mmol/L (10-20); BUN (Urea Nitrogen) 13 mg/dL (9.8-20.1); Bilirubin, Total 0.3 mg/dL (0.2-1.2); Calc. Creatinine Clearance 108 mL/min (70-130); Calcium 10.3 mg/dL (7.8-10.44); Carbon Dioxide 28 mmol/L (22-29); Chloride 102 mmol/L (98-107); Globulin 3.1 g/dL (2.4-3.5); Glucose 139 mg/dL (70-105); Potassium 4.3 mmol/L (3.5-5.1); Protein, Total 7.2 g/dL (6.0-8.3); Sodium 139 mmol/L (136-145)
[2021-02-22] MEDS: Citalopram 20 MG TAB PO SCH (20:31)
[2021-02-22] MEDS: Doxepin HCl 25 MG CAP PO SCH (20:32)
[2021-02-23 04:54] LABS: #Basophils 0.1 thou/uL (0.0-0.2); #Eosinphils 0.3 thou/uL (0.0-0.7); #Lymphocytes 1.9 thou/uL (1.20-3.40); #Monocytes 0.7 thou/uL (0.11-0.59); #Neutrophils 8.1 thou/uL (1.40-6.50); %Basophils 0.6 % (0.0-1.0); %Eosinophils 3.1 % (0.0-10.0); %Lymphocytes 17.3 % (21.0-51.0); %Monocytes 6.3 % (0.0-10.0); %Neutrophils 72.7 % (42.0-75.0); Hemoglobin 13.4 g/dL (12.0-16.0); Mean Corpuscular HGB CONC 31.6 g/dL (32.0-36.0); Mean Corpuscular Hemoglobin 29.1 pg (27.0-31.0); Mean Corpuscular Volume 92.1 fL (78.0-98.0); Mean Platelet Volume 7.7 fL (7.4-10.4); Platelet Count 362 thou/uL (130-400); RBC Distribution Width 13.6 % (11.5-14.5); Red Blood Cell (RBC) Count 4.58 mill/uL (4.20-5.40); White Blood Cell (WBC) Count 11.2 thou/uL (4.8-10.8)
[2021-02-23] MEDS: Lorazepam 1 MG TAB PO SCH ×5 (05:12→23:22)
[2021-02-23 05:13] LABS: Anion Gap 15 mmol/L (10-20); BUN (Urea Nitrogen) 13 mg/dL (9.8-20.1); Calc. Creatinine Clearance 124 mL/min (70-130); Calcium 9.7 mg/dL (7.8-10.44); Carbon Dioxide 24 mmol/L (22-29); Chloride 102 mmol/L (98-107); Glucose 95 mg/dL (70-105); Potassium 4.7 mmol/L (3.5-5.1); Sodium 136 mmol/L (136-145)
[2021-02-23] MEDS ORDERED: Lorazepam 1 MG TAB PO PRN (06:00)
[2021-02-23] MEDS: Thiamine HCl 200 MG/2 ML VIAL SLOW IVP SCH (06:40)
[2021-02-23] MEDS: HYDROcodone/Acetaminophen 5/325 mg Tablet PO PRN ×2 (06:41→20:43)
[2021-02-23] MEDS: D5 1/2 NS w/20 mEq KCL 1,000 ML IV SCH ×2 (06:42→15:27)
[2021-02-23] MEDS: Multivit, Therapeutic 1 TAB PO SCH (07:34)
[2021-02-23] MEDS: Folic Acid 1 MG TAB PO SCH (07:34)
[2021-02-23] MEDS: Ziprasidone 60 MG CAP PO SCH ×2 (07:35→20:45)
[2021-02-23] MEDS: Famotidine/PF 20 mg/2ml Vial SLOW IVP SCH ×2 (07:35→20:45)
[2021-02-23 09:22] LABS: Vancomycin, Trough 14.7 ug/mL
[2021-02-23] MEDS ORDERED: Lidocaine 1% w/Epinephrine 1:100K 20 ML VIAL ONE (09:32)
[2021-02-23] MEDS ORDERED: Fentanyl 250 MCG/5 ML VIAL ONE (09:39)
[2021-02-23] MEDS ORDERED: Midazolam HCl 2 mg/2 ml Vial ONE (09:39)
[2021-02-23] MEDS ORDERED: Lidocaine 2% Jelly 5 ML TUBE ONE (09:39)
[2021-02-23] MEDS ORDERED: SUGAMMADEX SODIUM 200 MG/2 ML VIAL ONE (09:42)
[2021-02-23] MEDS ORDERED: Ketorolac Tromethamine 30 MG/ML VIAL ONE (10:05)
[2021-02-23] MEDS ORDERED: Glycopyrrolate 0.2 MG/ML 5 ML SYRINGE ONE (10:05)
[2021-02-23] MEDS ORDERED: Lidocaine 1% PF 5 ML VIAL ONE (10:05)
[2021-02-23] MEDS ORDERED: PROPOFOL 200 MG/20 ML VIAL ONE (10:05)
[2021-02-23] MEDS ORDERED: Rocuronium Bromide 10 MG/ML (10ML VIAL) ONE (10:05)
[2021-02-23] MEDS ORDERED: Ondansetron PF 4 MG/2 ML Vial ONE (10:05)
[2021-02-23] MEDS ORDERED: Dexamethasone 20 MG/5 ML VIAL ONE (10:05)
[2021-02-23] MEDS ORDERED: Neomycin-Polymyxin 1 ML AMP ONE (10:20)
[2021-02-23] MEDS ORDERED: Fentanyl 100 MCG/2 ML VIAL ONE ×2 (11:16→11:49)
[2021-02-23] MEDS ORDERED: Meperidine HCl/PF 25 MG/ML VIAL SLOW IVP PRN (11:25)
[2021-02-23] MEDS ORDERED: Promethazine HCl 25 MG/ML VIAL IVPB PRN (11:25)
[2021-02-23] MEDS ORDERED: Ondansetron HCl/PF 4 MG/2 ML Vial IVP PRN (11:25)
[2021-02-23] MEDS ORDERED: Promethazine HCl 25 MG/ML VIAL IM PRN (11:25)
[2021-02-23] MEDS ORDERED: HYDROmorphone 2 MG/ML VIAL SLOW IVP PRN (11:25)
[2021-02-23] MEDS: Vancomycin HCl 1.5 GM in Sodium Chloride 0.9% 250 ML 300 ML IVPB SCH ×2 (13:29→21:31)
[2021-02-23] MEDS: Bacitracin 1 PK TOP SCH ×2 (15:27→20:45)
[2021-02-23] MEDS: Citalopram 20 MG TAB PO SCH (20:45)
[2021-02-23] MEDS: Doxepin HCl 25 MG CAP PO SCH (20:45)
[2021-02-23] MEDS: Chlorhexidine Gluconate 15 ML UDCUP SSP SCH (21:31)
[2021-02-24] MEDS: Lorazepam 0.5 MG TAB PO SCH ×5 (02:40→23:43)
[2021-02-24] MEDS: D5 1/2 NS w/20 mEq KCL 1,000 ML IV SCH ×2 (05:40→12:06)
[2021-02-24] MEDS ORDERED: Lorazepam 1 MG TAB PO PRN (06:00)
[2021-02-24] MEDS: Thiamine HCl 200 MG/2 ML VIAL SLOW IVP SCH (06:14)
[2021-02-24] MEDS: HYDROcodone/Acetaminophen 5/325 mg Tablet PO PRN ×4 (07:24→23:43)
[2021-02-24] MEDS: Bacitracin 1 PK TOP SCH ×3 (09:07→20:03)
[2021-02-24] MEDS: Chlorhexidine Gluconate 15 ML UDCUP SSP SCH ×2 (09:08→20:04)
[2021-02-24] MEDS: Folic Acid 1 MG TAB PO SCH (09:08)
[2021-02-24] MEDS: Multivit, Therapeutic 1 TAB PO SCH (09:08)
[2021-02-24] MEDS: Ziprasidone 60 MG CAP PO SCH ×2 (09:09→20:03)
[2021-02-24] MEDS: Famotidine/PF 20 mg/2ml Vial SLOW IVP SCH ×2 (10:31→20:03)
[2021-02-24] MEDS: Vancomycin HCl 1.5 GM in Sodium Chloride 0.9% 250 ML 300 ML IVPB SCH ×2 (10:34→20:27)
[2021-02-24] MEDS: Doxepin HCl 25 MG CAP PO SCH (20:03)
[2021-02-24] MEDS: Citalopram 20 MG TAB PO SCH (20:03)
[2021-02-25] MEDS ORDERED: Lorazepam 0.5 MG TAB PO PRN
[2021-02-25 04:11] LABS: #Basophils 0.1 thou/uL (0.0-0.2); #Eosinphils 0.2 thou/uL (0.0-0.7); #Lymphocytes 3.4 thou/uL (1.20-3.40); #Monocytes 0.8 thou/uL (0.11-0.59); #Neutrophils 5.9 thou/uL (1.40-6.50); %Basophils 0.8 % (0.0-1.0); %Eosinophils 2.1 % (0.0-10.0); %Lymphocytes 32.7 % (21.0-51.0); %Monocytes 7.6 % (0.0-10.0); %Neutrophils 56.7 % (42.0-75.0); Hemoglobin 12.5 g/dL (12.0-16.0); Mean Corpuscular HGB CONC 33.2 g/dL (32.0-36.0); Mean Corpuscular Hemoglobin 30.5 pg (27.0-31.0); Mean Corpuscular Volume 91.9 fL (78.0-98.0); Mean Platelet Volume 7.2 fL (7.4-10.4); Platelet Count 325 thou/uL (130-400); RBC Distribution Width 13.2 % (11.5-14.5); Red Blood Cell (RBC) Count 4.11 mill/uL (4.20-5.40); White Blood Cell (WBC) Count 10.4 thou/uL (4.8-10.8)
[2021-02-25 04:29] LABS: Anion Gap 11 mmol/L (10-20); BUN (Urea Nitrogen) 12 mg/dL (9.8-20.1); Calc. Creatinine Clearance 102 mL/min (70-130); Calcium 9.3 mg/dL (7.8-10.44); Carbon Dioxide 29 mmol/L (22-29); Chloride 104 mmol/L (98-107); Glucose 98 mg/dL (70-105); Potassium 4.1 mmol/L (3.5-5.1); Sodium 140 mmol/L (136-145)
[2021-02-25] MEDS: Multivit, Therapeutic 1 TAB PO SCH (09:03)
[2021-02-25] MEDS: Folic Acid 1 MG TAB PO SCH (09:03)
[2021-02-25] MEDS: Famotidine/PF 20 mg/2ml Vial SLOW IVP SCH ×2 (09:03→20:46)
[2021-02-25] MEDS: Thiamine 100 MG TAB PO SCH (09:03)
[2021-02-25] MEDS: Vancomycin HCl 1.5 GM in Sodium Chloride 0.9% 250 ML 300 ML IVPB SCH (09:18)
[2021-02-25] MEDS: Bacitracin 1 PK TOP SCH ×3 (09:19→20:47)
[2021-02-25] MEDS: Acetaminophen 325 MG TAB PO PRN (09:19)
[2021-02-25] MEDS: Ziprasidone 60 MG CAP PO SCH ×2 (09:19→20:46)
[2021-02-25] MEDS: Chlorhexidine Gluconate 15 ML UDCUP SSP SCH ×2 (09:23→20:47)
[2021-02-25] MEDS: HYDROcodone/Acetaminophen 5/325 mg Tablet PO PRN ×2 (13:48→17:19)
[2021-02-25] MEDS: Citalopram 20 MG TAB PO SCH (20:46)
[2021-02-25] MEDS: Ibuprofen 200 MG TAB PO PRN (20:46)
[2021-02-25] MEDS: Doxepin HCl 25 MG CAP PO SCH (20:47)
[2021-02-25] MEDS: Vancomycin HCl 1.25 GM in Sodium Chloride 0.9% 250 ML 250 ML IVPB SCH (21:47)
[2021-02-26] MEDS: HYDROcodone/Acetaminophen 5/325 mg Tablet PO PRN ×4 (00:07→16:29)
[2021-02-26 04:07] LABS: #Basophils 0.1 thou/uL (0.0-0.2); #Eosinphils 0.4 thou/uL (0.0-0.7); #Lymphocytes 3.1 thou/uL (1.20-3.40); #Monocytes 0.9 thou/uL (0.11-0.59); #Neutrophils 8.1 thou/uL (1.40-6.50); %Basophils 0.6 % (0.0-1.0); %Eosinophils 3.1 % (0.0-10.0); %Lymphocytes 24.7 % (21.0-51.0); %Monocytes 6.9 % (0.0-10.0); %Neutrophils 64.7 % (42.0-75.0); Hemoglobin 12.3 g/dL (12.0-16.0); Mean Corpuscular HGB CONC 32.4 g/dL (32.0-36.0); Mean Corpuscular Hemoglobin 29.6 pg (27.0-31.0); Mean Corpuscular Volume 91.4 fL (78.0-98.0); Mean Platelet Volume 7.2 fL (7.4-10.4); Platelet Count 329 thou/uL (130-400); RBC Distribution Width 13.2 % (11.5-14.5); Red Blood Cell (RBC) Count 4.14 mill/uL (4.20-5.40); White Blood Cell (WBC) Count 12.5 thou/uL (4.8-10.8)
[2021-02-26 04:32] LABS: Anion Gap 12 mmol/L (10-20); BUN (Urea Nitrogen) 10 mg/dL (9.8-20.1); Calc. Creatinine Clearance 91 mL/min (70-130); Calcium 9.3 mg/dL (7.8-10.44); Carbon Dioxide 30 mmol/L (22-29); Chloride 102 mmol/L (98-107); Glucose 91 mg/dL (70-105); Potassium 4.2 mmol/L (3.5-5.1); Sodium 140 mmol/L (136-145)
[2021-02-26] MEDS: Thiamine 100 MG TAB PO SCH (08:51)
[2021-02-26] MEDS: Folic Acid 1 MG TAB PO SCH (08:51)
[2021-02-26] MEDS: Bacitracin 1 PK TOP SCH ×2 (08:51→15:01)
[2021-02-26] MEDS: Multivit, Therapeutic 1 TAB PO SCH (08:51)
[2021-02-26] MEDS: Famotidine/PF 20 mg/2ml Vial SLOW IVP SCH (08:51)
[2021-02-26] MEDS: Chlorhexidine Gluconate 15 ML UDCUP SSP SCH (08:51)
[2021-02-26] MEDS: Vancomycin HCl 1.25 GM in Sodium Chloride 0.9% 250 ML 250 ML IVPB SCH (10:24)
[2021-02-26] MEDS: Ziprasidone 60 MG CAP PO SCH (10:25)
[2021-02-26 17:02] VITALS: BP 132/84; TEMP 96.3
== END 2021-02-26 18:37 | disposition home or self-care (01) | DRG 854 ==
LOC: ONC 15:46
PROVIDERS: ADMIT Internal Medicine; ATTEND Internal Medicine
PROC: HZ2ZZZZ Detoxification Services for Substance Abuse Treatment (ICD-10-PCS; 2021-02-22)
PROC: 0C900ZZ Drainage of Upper Lip, Open Approach (ICD-10-PCS; principal; 2021-02-23)
DX: A41.02 Sepsis due to Methicillin resistant Staphylococcus aureus (principal); K12.2 Cellulitis and abscess of mouth; N18.9 Chronic kidney disease, unspecified; M10.9 Gout, unspecified; I12.9 Hypertensive chronic kidney disease with stage 1 through stage 4 chronic kidney disease, or unspecified chronic kidney disease; Z96.643 Presence of artificial hip joint, bilateral; F31.9 Bipolar disorder, unspecified; F10.10 Alcohol abuse, uncomplicated; M25.451 Effusion, right hip; Z20.822 Contact with and (suspected) exposure to COVID-19; Z79.899 Other long term (current) drug therapy; Z90.49 Acquired absence of other specified parts of digestive tract; Z90.710 Acquired absence of both cervix and uterus; Z90.89 Acquired absence of other organs; Z87.891 Personal history of nicotine dependence; Z96.641 Presence of right artificial hip joint
CPT/HCPCS: 36415; 70487; 80048; 80053; 80202; 85025; 85652; 86140; 87070; 87077; 87186; 87205; J1100; J1885; J2250; J2405; J2704; J3010; J3370; J3411; J3480; J7050; Q0177; Q9967; S0028